=== PATIENT | female | born 1970 | race Caucasian/White ===

== ENCOUNTER 2016-11-19 20:18 | Observation (INO) | payer BC, OTHER ==
[2016-11-19] MEDS ORDERED: ASPIRIN 81 MG TAB.CHEW PO ONE (20:35)
--- NOTE | 2016-11-19 20:41 | ERNOTE ---
<Shantelle Wright - Last Filed: 11/19/16 21:31> Chest Pain/Cardiac HPI Chief Complaint: Chest Pain Time Seen by Provider: 11/19/16 20:19 Source: patient Exam Limitations: no limitations Immunizations: IMMUNIZATION HX Immunizations Up to Date Yes History of Influenza Vaccine Yes Hx Pneumococcal Vaccination No Allergies/Adverse Reactions: Allergies spironolactone Allergy (Verified 11/19/16 20:31) tramadol Allergy (Verified 11/19/16 20:31) Home Medications: HOME MEDICATIONS Metoprolol Succinate [Toprol Xl] 150 mg PO DAILY 02/06/16 [Last Taken 11/19/16] Omeprazole 20 mg PO DAILY 02/06/16 [Last Taken 11/19/16] Furosemide [Lasix] 40 mg PO DAILY PRN 07/03/16 [Last Taken 11/18/16] Aspirin [Aspirin EC] 81 mg PO DAILY 11/19/16 [Last Taken 11/19/16] Levothyroxine Sodium [Levo-T] 275 mcg PO DAILY 11/19/16 [Last Taken 11/19/16] Lisinopril [Zestril] 10 mg PO DAILY 11/19/16 [Last Taken 11/19/16] Rosuvastatin Calcium [Crestor] 10 mg PO DAILY 11/19/16 [Last Taken 11/19/16] Multivitamin [Multivitamins] 1 each PO DAILY 11/20/16 [Last Taken 11/19/16] Narrative: Patient started to have right sided chest pain/RUQ pain as well as central chest pain about 30 minutes after eating wings. She has been nauseated and gagging but no vomiting. In July she was told that she has had an NM within the last year. She saw Dr Cochran in [facility] for shortness of breath and angiogram confirmed a blockage ( but no confirmed NM at the time of angiogram) Date (Duration): 11/19/16 Time (Timing): 16:30 Timing: constant Severity/Quality: moderate Location: central Chest Pain Radiation: no radiation Activities at Onset: none Aspirin Treatment Today: 81 mg x 3 Prior Chest Pain/Cardiac Workup: Reports: cardiac cath, echocardiogram Prior Treatment: Denies: recently seen Review of Systems - Review of Systems Constitutional: Absent: recent illness, fever ENT: Absent: sore throat Respiratory: Absent: shortness of breath Cardiology: Present: chest pain Gastrointestinal/Abdominal: Present: See HPI, nausea, vomiting. Absent: diarrhea Genitourinary: Present: no symptoms reported Neurological: Absent: headache - Patient's Past Medical History Patient History - Medical: Anxiety, GERD, Hypothyroidism, Obesity, Other Patient History - Cardiac/Respiratory: Hypertension, Hyperlipidemia, Myocardial Infarction Patient History - Cancer: Thyroid Patient History - Surgical Procedures: , Gastric Bypass, Other Patient History - Other: None LMP (females 10-50): last week LMP (Calendar): 01/03/16 - Family History Father Family History - Cardiac/Respiratory: No pertinent hx Mother Family History - Medical: Family History - Cardiac/Respiratory: No pertinent hx - Social History Living Situations: home Abuse History: No History of abuse Psych History: Hx of Anxiety Smoking Status: Current every day smoker Alcohol Use: heavy - three beer every day (two today) Drug Use: none - Immunizations Immunizations Up to Date: Yes Hx Pneumococcal Vaccination: No History of Influenza Vaccine: Yes Physical Exam - Physical Exam General Appearance: Present: wd/wn, alert, no apparent distress, anxious Ears, Nose, Throat: Present: normal pharynx Respiratory: Present: no respiratory distress, normal breath sounds, no accessory muscle use, chest nontender, lungs clear Cardiovascular/Chest: Present: regular rate, rhythm, no murmur Gastrointestinal/Abdominal: Present: normal bowel sounds, nondistended, soft, tenderness - RUQ and epigastric Extremity Exam: Present: no edema Neurological Exam: Present: alert, oriented, normal mood/affect Skin Exam: Present: normal color, warm/dry ED Progress - Results and Orders Patient's Lab Results:: I have reviewed the patient's lab results. - Vital Signs Patient's Vital Signs:: I have reviewed the patient's vital signs. Vital Signs: Vital Signs 11/19/16 20:23 Temperature 37.0 C Pulse Rate 83 Respiratory 18 Rate Blood Pressure 160/92 O2 Sat by Pulse 92 Oximetry - EKG EKG: NSR, unchanged from 06/2016, other - poor R progression anterior leads EKG read: Interp. by me - Progress/Reassessment Chief Complaint: Chest Pain - Transfer of Care Physician Sign Out: Shantelle Wright Receiving Physician: Topher Duran Pending Results: X-ray results Expected Disposition: Admit Departure - Departure Clinical Impression: Abdominal pain, acute, right upper quadrant Chest pain Qualifiers: Chest pain type: unspecified Qualified Code(s): R07.9 - Chest pain, unspecified Disposition: [facility] Condition: Fair <RogerTopher - Last Filed: 11/20/16 01:43> Chest Pain/Cardiac HPI Immunizations: IMMUNIZATION HX Immunizations Up to Date Yes History of Influenza Vaccine Yes Hx Pneumococcal Vaccination No ED Progress - Results and Orders Patient's Lab Results:: I have reviewed the patient's lab results. Results and Orders: Laboratory Tests 11/19/16 11/19/16 11/19/16 20:45 20:45 20:45 WBC 10.2 Hgb 11.2 L Hct 32.2 L Plt Count 332 PT 10.0 INR (Anticoag Therapy) 0.96 PTT (Bryan) 28.9 Sodium 132 Potassium 4.1 Chloride 95 L Carbon Dioxide 21.7 L Anion Gap 19.4 H BUN 20 Creatinine 1.41 H Est GFR (Non-Af Amer) 42 L BUN/Creatinine Ratio 14.2 Random Glucose 118 H Calcium 8.9 Total Bilirubin 0.2 AST 17 ALT 18 L Alkaline Phosphatase 97 Troponin I Less than 0.017 Total Protein 7.6 Albumin 3.4 Amylase 38 Lipase 151 - Vital Signs Patient's Vital Signs:: I have reviewed the patient's vital signs. Vital Signs: Vital Signs 11/19/16 11/19/16 20:23 20:56 Temperature 37.0 C Pulse Rate 83 84 Respiratory 18 18 Rate Blood Pressure 160/92 148/99 O2 Sat by Pulse 92 99 Oximetry - X-Ray X-Ray #1 X-Ray: abdomen Interpretation: Interp. by me X-ray Comments: non specific bowel gas pattern - Progress/Reassessment Progress:: Improved Progress Note-Subjective: Assumed care from Dr. Wright at 22:00. Pt had chest and abdominal pain on presentation. Continues to have nausea, given additional zofran. 11/20/16 00:33 Spoke with Estella DE JESUS hospitalist, she agrees to admit pt obs 11/20/16 01:36
--- OUTSIDE RECORDS SUMMARY | 2016-11-19 20:41 | XMS REPORT | Continuity of Care Document ---
:1970 Author Organization [facility] ([facility]) Address [address] [place] [address] Phone [phone] Care Team Providers Name Role Phone Min Evans Primary Care Provider [phone] Source Comments This disclosure is being made pursuant to the Care Everywhere program, applicable federal and state laws, and may not contain all informaitonavailable regarding this patient.[facility] ([facility]) Active Allergies and Adverse Reactions No Known Allergies Current Medications Prescription Sig. Disp. Refills Start Date End Date Status metoPROLol succinate PO Take 1 Tab by Active mouth daily. hydrochlorothiazide 12.5 mg Take 12.5 mg by Active tablet mouth daily. levothyroxine 200 mcg tablet Take 275 mcg by Active mouth daily. Taking 275 mcg daily. 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 Minimal capsular invasion was noted but with no lympho -vascular invasion. 07/29 lymph nodes were positive for metastatic papillary carcinoma in the central neck. [id number]. 150.2 mCi I-131 in January 2012. Posttherapy scan revealed uptake only in the thyroid bed with no evidence of distant metastasis. Hypothyroidism, postsurgical 09/03/2013 Other specified pre-operative examination 12/26/2006 Intestinal bypass or anastomosis status 12/17/2006 Special screening for osteoporosis 12/17/2006 Heartburn 12/17/2006 Immunizations Name Dates Previously Given Next Due Influenza, unspecified 04/20/2013 Social History Tobacco Use Types Packs/Day Years Used Date Current Every Day Smoker Last Filed Vital Signs Vital Sign Reading Time Taken Blood Pressure 141/92 08/31/2013 2:12 PM [employer] Pulse 85 08/31/2013 2:12 PM [employer] Temperature 36.2 C (97.2 F) 08/31/2013 2:12 PM [employer] Respiratory Rate 18 01/08/2007 12:00 PM CDT Height 1.64 m (5' 4.57") 08/31/2013 2:12 PM [employer] Weight 112.9 kg (248 lb 14.4 oz) 08/31/2013 2:12 PM [employer] Body Mass Index 41.98 08/31/2013 2:12 PM [employer] Oxygen Saturation - - Plan of Care Health Maintenance Due Date Last Done Comments Hepatitis B Vaccine (1 of 3 1968 - Primary Series) Tdap Vaccine 1979 MMR Vaccine 1986 Td Vaccine 1986 Pneumococcal Vaccine (1 of 1 1987 - PPSV23) Cervical Cancer Screening 1998 Mammogram 2008 Lipid Disorder Screening 02/17/2014 02/17/2009, Additional history exists 01/15/2008, 07/10/2007 Influenza Vaccine: Seasonal 02/19/2016 04/20/2013 (#1) Results from Last 3 Months Not on file
[2016-11-19] MEDS: NITROGLYCERIN 0.4 MG/TAB BTL SL PRN ×3 (20:46→21:05)
[2016-11-19] MEDS ORDERED: ASPIRIN 81 MG TAB.CHEW ONE (20:47)
[2016-11-19 20:53] LABS: Hematocrit 32.2 % (37.0-47.0); Hemoglobin 11.2 gm/dL (12.5-16.0); Mean Cell Volume 88.2 fl (78-100); Mean Corpuscular Hemoglobin 30.7 pg (27-31); Mean Corpuscular Hgb Conc 34.8 g/dl (32-36); Mean Platelet Volume 8.6 fl (6.0-9.5); Neutrophil # 6.8 K/mm3 (1.3-6.0); Neutrophil % 67.1 % (42-75.0); Platelet Count 332 K/mm3 (150-450); Red Blood Count 3.65 M/mm3 (4.2-5.4); Red Cell Distribution Width 12.9 % (11.5-14.0); White Blood Count 10.2 K/mm3 (4.0-10.5)
[2016-11-19] MEDS ORDERED: ONDANSETRON HCL/PF 2 MG/ML VIAL IV ONE ×2 (20:53→21:52)
[2016-11-19] MEDS ORDERED: ONDANSETRON HCL/PF 2 MG/ML VIAL ONE ×3 (20:54→22:19)
[2016-11-19 21:12] LABS: ALT 18 U/L (19-67); AST 17 U/L (0-48); Albumin * 3.4 gm/dl (3.4-5.0); Alkaline Phosphatase * 97 U/L (50-170); Amylase * 38 U/L (25-115); Anion Gap 19.4 mmol/L (6.8-13.8); BUN/Creatinine Ratio 14.2 (9.0-21.6); Bilirubin, Total 0.2 mg/dL (0.0-1.1); Blood Urea Nitrogen 20 mg/dL (3-23); Ca. Corrected For Albumin 9.1 mg/dL (8.4-10.2); Calcium * 8.9 mg/dL (7.9-10.9); Carbon Dioxide 21.7 mmol/L (24-32.6); Chloride 95 mmol/L (97-106); Glucose * 118 mg/dL (70-110); Lipase 151 U/L (73-393); Potassium 4.1 mmol/L (3.4-4.6); Sodium 132 mmol/L (132-142); Total Protein 7.6 gm/dL (6.2-8.2); Troponin I Less than 0.017 ng/ml (0.00-0.10)
[2016-11-19 21:30] LABS: INR 0.96 INR (0.90-1.10); Partial Thrombolplastin Time 28.9 Seconds (24-32)
[2016-11-19] MEDS ORDERED: NORMAL SALINE 1,000 ML IV ONE (21:55)
[2016-11-19] MEDS ORDERED: NALBUPHINE HCL 20 MG/ML AMPUL IV ONE (22:20)
[2016-11-19] MEDS ORDERED: NALBUPHINE HCL 20 MG/ML AMPUL ONE (22:20)
[2016-11-20] MEDS ORDERED: MORPHINE SULFATE 2 MG/ML DISP.SYRIN IV ONE (00:23)
[2016-11-20] MEDS ORDERED: MORPHINE SULFATE 2 MG/ML DISP.SYRIN ONE (00:35)
--- OUTSIDE RECORDS SUMMARY | 2016-11-20 00:39 | XMS REPORT | Continuity of Care Document ---
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 [id number]. 150.2 mCi I-131 in January 2012. Posttherapy [...] Taken Blood Pressure 141/92 08/31/2013 2:12 PM PL[employer] Pulse 85 08/31/2013 2:12 PM PL[employer] Temperature 36.2 C (97.2 F) 08/31/2013 2:12 PM PLUG W[employer] Respiratory Rate 18 01/08/2007 12:00 PM CDT Height 1.64 m (5' 4.57") 08/31/2013 2:12 PM PL[employer] Weight 112.9 kg (248 lb 14.4 oz) 08/31/2013 2:12 PM [employer] Body Mass Index 41.98 08/31/2013 2:12 PM [employer] Oxygen Saturation - - Plan of Care [...]
[2016-11-20] MEDS ORDERED: NORMAL SALINE 1,000 ML IV PRN (00:57)
--- NOTE | 2016-11-20 01:16 | HP ---
Chief Complaint - Chief Complaint Date of Service: 11/20/16 Time of Service: 01:08 Chief Complaint: " Right Rib Cage Pain, Chest Pressure, Nausea". Source of HPI- Pt; reliable, ER provider report. History of Present Illness: Ms. Rudolph is a 46-yr-old [place] pt of Dr. Min Evans with a PMH of: CAD, CHF , DVT, HLD, HTN, Hypothyroidism & Sleep Apnea. Pt states that at about 4.pm, she had bufallo chicken wings for dinner and 30 minutes later, she developed chest pain on her RT rib cage. She thought it may be related to Acid reflux and therefore put off the symptom. At 7.00 pm, she tried to lie down in bed, but the pain got worse and was accompanied with Nausea, sweating and pain radiation to the back. She denies SOB with this episode. She was afraid that her heart may be involved and therefore chose to come to the [facility] ER. Cardiac risk factors involves cardiomyopathy in June 2016 which led to Cardiac Catheterization in July 2016; which showed Chronically Occluded mid LAD and is managed with Aspirin, beta simona, nancy inhibitor & Statin. Family history is significant for her mother who from an PA at age 36. At the ED tonight, the CXR and Abdominal X-ray did not have any acute findings. The initial EKG and troponin did not have any findings suggestive of ACS/PA. At the time of Physical exam, pt is in no distress, but reports that she still has persistent RT rib cage pain. She will be admitted under observation status for remote telemetry monitoring. - Patient's Past Medical History Patient History - Medical: Anxiety, GERD, Hypothyroidism, Obesity, Other Patient History - Cardiac/Respiratory: Coronary Heart Disease, CHF, Deep Vein Thrombosis, Hypertension, Hyperlipidemia, Myocardial Infarction Patient History - Cancer: Thyroid Patient History - Surgical Procedures: , Gastric Bypass, Other Patient History - Other: None LMP (females 10-50): last week LMP (Calendar): 01/03/16 - Family History Father Family History - Cardiac/Respiratory: No pertinent hx Mother Family History - Medical: Family History - Cardiac/Respiratory: No pertinent hx - Social History Living Situations: home Abuse History: No History of abuse Psych History: Hx of Anxiety Smoking Status: Current every day smoker Alcohol Use: heavy - three beer every day (two today) Drug Use: none - Immunizations Immunizations Up to Date: Yes Hx Pneumococcal Vaccination: No History of Influenza Vaccine: Yes Review Of Systems (GEN) - Review of Systems Generalized/Overall Review: Present: Diaphoresis. Absent: Weakness, Fever, Malaise, Fatigue, Weight loss, Weight gain EENTM: Absent: Eye Pain, Blurred Vision, Double Vision Respiratory: Absent: Cough, Shortness of Breath, Orthopnea Cardiac: Present: Chest Pain. Absent: Palpitations, Syncope Abdominal: Present: Nausea. Absent: Vomiting, Hematemesis, Abdominal Pain Genitourinary: Absent: Burning, Itching, Urgency, Frequency, Hesitancy Musculoskeletal: Absent: Joint Pain, Back Pain, Joint Swelling Neurological: Absent: Headache, Anxiety, Depressed, Emotional Problems Skin: Absent: Dryness, Lesions, Lumps, Rash Endocrine: Present: Intolerance to Heat. Absent: Increased Hunger, Flushing, Increased Thirst Misc: All systems neg except as marked Allergies/Adverse Reactions: Allergies Allergy/AdvReac Type Severity Reaction Status Date / Time spironolactone Allergy Verified 11/19/16 20:31 tramadol Allergy Verified 11/19/16 20:31 Home Medications: HOME MEDICATIONS Metoprolol Succinate [Toprol Xl] 150 mg PO DAILY 02/06/16 [Last Taken 11/19/16] Omeprazole 20 mg PO DAILY 02/06/16 [Last Taken 11/19/16] Furosemide [Lasix] 40 mg PO DAILY PRN 07/03/16 [Last Taken 11/18/16] Aspirin [Aspirin EC] 81 mg PO DAILY 11/19/16 [Last Taken 11/19/16] Levothyroxine Sodium [Levo-T] 275 mcg PO DAILY 11/19/16 [Last Taken 11/19/16] Lisinopril [Zestril] 10 mg PO DAILY 11/19/16 [Last Taken 11/19/16] Rosuvastatin Calcium [Crestor] 10 mg PO DAILY 11/19/16 [Last Taken 11/19/16] Multivitamin [Multivitamins] 1 each PO DAILY 11/20/16 [Last Taken 11/19/16] Exam - Exam Vital Signs: Vital Signs - Last Taken Temp 37.0 C 11/19/16 20:23 Pulse 79 11/20/16 00:39 Resp 18 11/20/16 00:39 BP 155/92 11/20/16 00:39 Pulse Ox 100 11/20/16 00:39 Constitutional: Present: Alert, Oriented x3, No distress ENT Exam: Present: normal ENT inspection, hearing grossly normal, moist mucous membranes Eye Exam: bilateral eye: normal inspection, PERRL Neck: Present: full range of motion, supple, normal inspection Back Exam: Present: no CVA tenderness Respiratory: Present: lungs clear, No wheezing Cardiovascular/Chest: Present: normal peripheral pulses, regular rate, rhythm, no chest tenderness, no edema, no murmur Abdomen: Present: Normal bowel sounds, soft, nontender /Rectal: Present: Exam deferred Extremity: Present: non-tender, normal inspection, no pedal edema, no calf tenderness Skin Exam: Present: warm/dry, no cyanosis Lymphatic: Present: no adenopathy Neurologic: Present: no motor/sensory deficits, alert, normal mood/affect, oriented x 3 Appearance: Present: appropriate appearance, appropriate insight Eye contact: Present: cooperative, good eye contact, normal speech Thoughts: Present: normal thought pattern, no apparent hallucination Diagnostic Studies: Laboratory Results WBC 10.2 K/mm3 (4.0-10.5) 11/19/16 20:45 RBC 3.65 M/mm3 (4.2-5.4) L 11/19/16 20:45 Hgb 11.2 gm/dL (12.5-16.0) L 11/19/16 20:45 Hct 32.2 % (37.0-47.0) L 11/19/16 20:45 MCV 88.2 fl (78-100) 11/19/16 20:45 MCH 30.7 pg (27-31) 11/19/16 20:45 MCHC 34.8 g/dl (32-36) 11/19/16 20:45 RDW 12.9 % (11.5-14.0) 11/19/16 20:45 Plt Count 332 K/mm3 (150-450) 11/19/16 20:45 MPV 8.6 fl (6.0-9.5) 11/19/16 20:45 Immature Gran % (Auto) 0.70 % (0.001-0.429) H 11/19/16 20:45 Immature Gran # (Auto) 0.07 K/mm3 (0.000-0.0310) H 11/19/16 20:45 Neutrophils % 67.1 % (42-75.0) 11/19/16 20:45 Lymphocytes % 20.8 % (20-51) 11/19/16 20:45 Monocytes % 8.8 % (0.0-9) 11/19/16 20:45 Eosinophils % 2.0 % (0.0-3.0) 11/19/16 20:45 Basophils % 0.6 % (0.0-1.0) 11/19/16 20:45 Nucleated RBC % 0.0 k/mm3 (0-1) 11/19/16 20:45 Neutrophils # 6.8 K/mm3 (1.3-6.0) H 11/19/16 20:45 Lymphocytes # 2.1 k/mm3 (1.5-3.5) 11/19/16 20:45 Monocytes # 0.9 k/mm3 (0.0-1.0) 11/19/16 20:45 Eosinophils # 0.2 k/mm3 (0.0-0.7) 11/19/16 20:45 Absolute Basophils 0.1 k/mm3 (0.0-0.1) 11/19/16 20:45 PT 10.0 Seconds (9.4-11.4) 11/19/16 20:45 INR (Anticoag Therapy) 0.96 INR (0.90-1.10) 11/19/16 20:45 PTT (Vamsi) 28.9 Seconds (24-32) 11/19/16 20:45 Sodium 132 mmol/L (132-142) 11/19/16 20:45 Plasma Sodium 132 mmol/L (130-142) 11/19/16 20:45 Potassium 4.1 mmol/L (3.4-4.6) 11/19/16 20:45 Chloride 95 mmol/L (97-106) L 11/19/16 20:45 Carbon Dioxide 21.7 mmol/L (24-32.6) L 11/19/16 20:45 Anion Gap 19.4 mmol/L (6.8-13.8) H 11/19/16 20:45 BUN 20 mg/dL (3-23) 11/19/16 20:45 Creatinine 1.41 mg/dL (0.4-1.4) H 11/19/16 20:45 Est GFR (Non-Af Amer) 42 mL/min (60-130) L 11/19/16 20:45 BUN/Creatinine Ratio 14.2 (9.0-21.6) 11/19/16 20:45 Random Glucose 118 mg/dL (70-110) H 11/19/16 20:45 Calcium 8.9 mg/dL (7.9-10.9) 11/19/16 20:45 Calcium Adj for Albumin 9.1 mg/dL (8.4-10.2) 11/19/16 20:45 Total Bilirubin 0.2 mg/dL (0.0-1.1) 11/19/16 20:45 AST 17 U/L (0-48) 11/19/16 20:45 ALT 18 U/L (19-67) L 11/19/16 20:45 Alkaline Phosphatase 97 U/L (50-170) 11/19/16 20:45 Troponin I Less than 0.017 ng/ml (0.00-0.10) 11/19/16 20:45 Total Protein 7.6 gm/dL (6.2-8.2) 11/19/16 20:45 Albumin 3.4 gm/dl (3.4-5.0) 11/19/16 20:45 Amylase 38 U/L (25-115) 11/19/16 20:45 Lipase 151 U/L (73-393) 11/19/16 20:45 Assessment/Plan - Assessment/Plan (1) Chest pain, rule out acute myocardial infarction Assessment: The first Troponin and EKG was negative for ACS/PA. Will repeat EKG &obtain serial Troponins. Should they all come back negative, will attribute the Episode to be GI related. Will adjust omeprazole dose and encourage diet lifestyle modifications. Will administer GI cocktail to see if it will aid in providing relief. Problem: Acute (2) GERD (gastroesophageal reflux disease) Problem: Chronic (3) HTN (hypertension) Problem: Chronic Qualifiers: Hypertension type: essential hypertension Qualified Code(s): I10 - Essential (primary) hypertension (4) HLD (hyperlipidemia) Problem: Chronic
[2016-11-20] MEDS ORDERED: SUCRALFATE 1 G/10 ML UDC PO ONE (01:30)
[2016-11-20] MEDS ORDERED: MAG HYDROX/ALUMINUM HYD/SIMETH 30 ML UDC PO ONE (01:30)
[2016-11-20] MEDS ORDERED: BELLADONNA ALKALOIDS/PHENOBARB 60 ML BTL PO ONE (01:30)
[2016-11-20] MEDS ORDERED: LIDOCAINE HCL 20 ML UDC PO ONE (01:30)
[2016-11-20] MEDS ORDERED: KETOROLAC TROMETHAMINE 15 MG/ML VIAL IV PRN (03:22)
[2016-11-20] MEDS ORDERED: FUROSEMIDE 80 MG TABLET PO PRN (06:18)
[2016-11-20] MEDS ORDERED: NITROGLYCERIN 0.4 MG/TAB BTL SL PRN (06:27)
[2016-11-20 06:45] VITALS: BP 146/49
[2016-11-20] MEDS ORDERED: FUROSEMIDE 40 MG TABLET PO PRN (06:48)
[2016-11-20] MEDS ORDERED: LEVOTHYROXINE SODIUM PO SCH ×4 (07:00)
--- NOTE | 2016-11-20 08:11 | DS ---
(1) Gall bladder pain Problem: Acute (2) Chest pain Problem: Acute Qualifiers: Chest pain type: unspecified Qualified Code(s): R07.9 - Chest pain, unspecified (3) GERD (gastroesophageal reflux disease) Problem: Chronic Qualifiers: Esophagitis presence: esophagitis presence not specified Qualified Code(s) : K21.9 - Gastro-esophageal reflux disease without esophagitis (4) HLD (hyperlipidemia) Problem: Chronic Qualifiers: Hyperlipidemia type: unspecified Qualified Code(s): E78.5 - Hyperlipidemia , unspecified (5) HTN (hypertension) Problem: Chronic Qualifiers: Hypertension type: essential hypertension Qualified Code(s): I10 - Essential (primary) hypertension Description of Stay: Kim is a 46 year old female who presented to the ER with c/o chest pain after eating fried chicken wings the afternoon prior. troponin negative x2. ekg showed no acute st-t wave changes. chest pain resolved prior to admission to the unit. pt c/o RUQ abdominal pain but no elevated wbc. amylase/lipase wnl. liver panel wnl. abdominal xray showed no acute changes. patient stayed overnight for observation and was release the next morning with the following follow up: Ultrasound of the RUQ of the abdomen in 1 week with follow up office visit with pcp to follow. Patient was advised to avoid fried fatty foods in the meantime. Procedures Performed: none Results and Findings: Laboratory Tests 11/19/16 11/19/16 11/20/16 20:45 20:45 03:00 WBC 10.2 Hgb 11.2 L Hct 32.2 L Plt Count 332 Sodium 132 Potassium 4.1 Chloride 95 L BUN 20 Creatinine 1.41 H Random Glucose 118 H Total Bilirubin 0.2 AST 17 Alkaline Phosphatase 97 Troponin I Less than 0.017 0.017 Amylase 38 Lipase 151 Discharge Disposition: Home self care Disposition: Home self-care Condition: Undetermined Discharge Activity: Activity as tolerated Discharge Diet: Low fat/chol - no fried fatty foods Referrals: Min Evans MD [Primary Care Provider] - Problem Oriented Discharge Instructions to Patient/Family: Fat and Cholesterol Restricted Diet, Biliary Colic, Gastroesophageal Reflux Disease, Adult, Easy-to- Read Additional Patient Instructions (free text): push fluids such as water. avoid fried fatty foods. Schedule outpatient Ultrasound of the Liver/Gall Bladder, indication: RUQ pain. Follow up with dr. Evans after Ultrasound Medication changes: omeprazole 20 mg - 2 times a day. Prescriptions (Any new or edited meds): Omeprazole 20 mg PO BID #60 tablet. Complete Home Medications List: Complete Home Medication List: Metoprolol Succinate [Toprol Xl] 150 mg PO DAILY 02/06/16 Furosemide [Lasix] 40 mg PO DAILY PRN 07/03/16 Aspirin [Aspirin EC] 81 mg PO DAILY 11/19/16 Levothyroxine Sodium [Levo-T] 275 mcg PO DAILY 11/19/16 Lisinopril [Zestril] 10 mg PO DAILY 11/19/16 Rosuvastatin Calcium [Crestor] 10 mg PO DAILY 11/19/16 Multivitamin [Multivitamins] 1 each PO DAILY 11/20/16 Omeprazole 20 mg PO BID #60 tablet. 11/20/16 Amb Orders for Discharge: US Abd Single Organ (Limited) Time Frame: 1 Week, Location: Determined By Patient
[2016-11-20] MEDS ORDERED: PANTOPRAZOLE SODIUM 20 MG TABLET.DR PO SCH (09:00)
[2016-11-20] MEDS ORDERED: MULTIVITAMINS 1 CAP CAPSULE PO SCH (09:00)
[2016-11-20] MEDS ORDERED: LISINOPRIL 10 MG TABLET PO SCH (09:00)
[2016-11-20] MEDS ORDERED: ASPIRIN 81 MG TABLET.DR PO SCH (09:00)
[2016-11-20] MEDS ORDERED: METOPROLOL SUCCINATE 100 MG, METOPROLOL SUCCINATE 50 MG PO SCH ×2 (09:00)
[2016-11-20] MEDS ORDERED: METOPROLOL SUCCINATE 100 MG TABLET.SA PO SCH (09:00)
[2016-11-20] MEDS ORDERED: LEVOTHYROXINE SODIUM 275 MCG PO SCH (09:00)
[2016-11-20] MEDS ORDERED: ROSUVASTATIN CALCIUM 10 MG TABLET PO SCH (21:00)
== END 2016-11-20 09:35 | disposition home or self-care (01) ==
LOC: ER 20:18 → MS 11-20 00:35
PROVIDERS: ADMIT Nurse Practitioner; ATTEND Internal Medicine
DX: K82.9 Disease of gallbladder, unspecified (principal); R07.9 Chest pain, unspecified; K21.9 Gastro-esophageal reflux disease without esophagitis; E78.5 Hyperlipidemia, unspecified; I10 Essential (primary) hypertension
CPT/HCPCS: 36415; 71020; 74020; 80053; 82150; 83690; 84484; 85025; 85610; 85730; 93005; 96374; 96375; 99284; G0378

== ENCOUNTER 2016-11-22 09:31 | Emergency (ER) | payer BC ==
--- OUTSIDE RECORDS SUMMARY | 2016-11-22 09:52 | XMS REPORT | Continuity of Care Document ---
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 [id number]. 150.2 mCi I-131 in January 2012. Posttherapy [...] Taken Blood Pressure 141/92 08/31/2013 2:12 PM [employer] Pulse 85 08/31/2013 2:12 PM [employer] Temperature 36.2 C (97.2 F) 08/31/2013 2:12 PM [employer] Respiratory Rate 18 01/08/2007 12:00 PM CDT Height 1.64 m (5' 4.57") 08/31/2013 2:12 PM [employer] Weight 112.9 kg (248 lb 14.4 oz) 08/31/2013 2:12 PM [employer] Body Mass Index 41.98 08/31/2013 2:12 PM [employer] Oxygen Saturation - - Plan of Care [...]
[2016-11-22] MEDS ORDERED: PIPERACILLIN SODIUM/TAZOBACTAM 3.375 GM in DEXTROSE 5 % IN WATER 100 ML IV ONE ×2 (10:17)
[2016-11-22 10:26] LABS: Hematocrit 31.1 % (37.0-47.0); Hemoglobin 10.9 gm/dL (12.5-16.0); Mean Cell Volume 88.4 fl (78-100); Mean Platelet Volume 8.4 fl (6.0-9.5); Neutrophil # 8.4 K/mm3 (1.3-6.0); Neutrophil % 80.5 % (42-75.0); Platelet Count 286 K/mm3 (150-450); Red Blood Count 3.52 M/mm3 (4.2-5.4); Red Cell Distribution Width 12.9 % (11.5-14.0); White Blood Count 10.4 K/mm3 (4.0-10.5)
[2016-11-22] MEDS ORDERED: NORMAL SALINE 1,000 ML IV PRN (10:28)
[2016-11-22 10:39] LABS: Albumin * 2.6 gm/dl (3.4-5.0); Anion Gap 16.2 mmol/L (6.8-13.8); BUN/Creatinine Ratio 9.7 (9.0-21.6); Bilirubin, Total 0.9 mg/dL (0.0-1.1); Ca. Corrected For Albumin 9.6 mg/dL (8.4-10.2); Calcium * 8.8 mg/dL (7.9-10.9); Carbon Dioxide 21.4 mmol/L (24-32.6); Potassium 3.6 mmol/L (3.4-4.6); Total Protein 6.8 gm/dL (6.2-8.2)
--- NOTE | 2016-11-22 10:44 | ERNOTE ---
Abdominal HPI - Narrative Date of Service: 11/22/16 - General Chief Complaint: Abdominal Pain Time Seen by Provider: 11/22/16 09:38 Source: patient Exam Limitations: no limitations - Immun/Allergies/Home Medications Immunizatons: IMMUNIZATION HX Immunizations Up to Date Yes History of Influenza Vaccine Yes Hx Pneumococcal Vaccination No Allergies/Adverse Reactions: Allergies spironolactone Allergy (Verified 11/22/16 09:46) tramadol Allergy (Verified 11/22/16 09:46) Home Medications: HOME MEDICATIONS Metoprolol Succinate [Toprol Xl] 150 mg PO DAILY 02/06/16 [Last Taken 11/19/16] Furosemide [Lasix] 40 mg PO DAILY PRN 07/03/16 [Last Taken 11/18/16] Aspirin [Aspirin EC] 81 mg PO DAILY 11/19/16 [Last Taken 11/19/16] Levothyroxine Sodium [Levo-T] 275 mcg PO DAILY 11/19/16 [Last Taken 11/19/16] Lisinopril [Zestril] 10 mg PO DAILY 11/19/16 [Last Taken 11/19/16] Rosuvastatin Calcium [Crestor] 10 mg PO DAILY 11/19/16 [Last Taken 11/19/16] Multivitamin [Multivitamins] 1 each PO DAILY 11/20/16 [Last Taken 11/19/16] Omeprazole 20 mg PO BID #60 tablet. 11/20/16 [Last Taken Unknown] Cholecalciferol [Vitamin D] 1,000 unit PO DAILY 11/22/16 [Last Taken Unknown] Co Q-10 11/22/16 [Last Taken Unknown] Ferrous Sulfate [Iron] 325 mg PO HS 11/22/16 [Last Taken Unknown] - History of Present Illness Narrative: Patient presents to the ED for an abnormal ultrasound. She has been in the hospital for chest pains. An outpatient GB US was done this am and her provider was contacted. Her provider spoke with Dr Barnes and the patient was sent to the ED. She denies fever. RUQ pain. No active vomiting. She relates no further chest pain. Denies new leg swelling. Pain waxes and wanes, nothing makes it better or worse. Timing: other - fluctuating intensity Quality: mild Activities at Onset: none Modifying Factors - (Improves): Present: other - nothing Modifying Factors - (Worsens): Present: other - palpation Associated Symptoms: Absent: chest pain, vomiting, shortness of breath Prior Treatment: Present: recently seen, treated by physician Review of Systems - Review of Systems Constitutional: Absent: fever Respiratory: Absent: shortness of breath Cardiology: Present: See HPI Gastrointestinal/Abdominal: Present: See HPI Genitourinary: Absent: dysuria All Other Systems: All systems neg except as marked - Patient's Past Medical History Patient History - Medical: Anxiety, GERD, Hypothyroidism, Obesity, Other Patient History - Cardiac/Respiratory: Coronary Heart Disease, CHF, Deep Vein Thrombosis, Hypertension, Hyperlipidemia, Myocardial Infarction Patient History - Cancer: Thyroid Patient History - Surgical Procedures: , Gastric Bypass, Other Patient History - Other: None LMP (Calendar): 01/03/16 - Family History Father Family History - Cardiac/Respiratory: No pertinent hx Mother Family History - Medical: Family History - Cardiac/Respiratory: No pertinent hx - Social History Living Situations: home Abuse History: No History of abuse Psych History: Hx of Anxiety Smoking Status: Current every day smoker Have you smoked in the past 12 months: Yes Do you dip or chew tobacco: No Alcohol Use: heavy Drug Use: none - Immunizations Immunizations Up to Date: Yes Hx Pneumococcal Vaccination: No History of Influenza Vaccine: Yes Physical Exam - Physical Exam General Appearance: Present: alert, no apparent distress Eye Exam: Normal inspection: bilateral, PERRL: bilateral Ears, Nose, Throat: Present: normal ENT inspection Neck: Present: normal inspection Respiratory: Present: no respiratory distress, normal breath sounds, no accessory muscle use, lungs clear Cardiovascular/Chest: Present: regular rate, rhythm Gastrointestinal/Abdominal: Present: normal bowel sounds, soft, tenderness, other - RUQ tenderness. No guarding or rebound. No peritoneal signs Back Exam: Absent: CVA tenderness (R), CVA tenderness (L) Extremity Exam: Present: normal range of motion Neurological Exam: Present: alert, normal mood/affect, no motor/sensory deficits Skin Exam: Present: normal color, warm/dry ED Progress - Results and Orders Patient's Lab Results:: I have reviewed the patient's lab results. - Vital Signs Patient's Vital Signs:: I have reviewed the patient's vital signs. Vital Signs: Vital Signs 11/22/16 11/22/16 09:49 10:24 Temperature 36.9 C Pulse Rate 93 82 Respiratory 16 16 Rate Blood Pressure 143/84 108/62 O2 Sat by Pulse 100 97 Oximetry - CT/Ultrasound CT/Ultrasound Narrative: I reviwed US from earlier - Progress/Reassessment Chief Complaint: Abdominal Pain Progress Note-Subjective: 11/22/16 10:42 D/W Dr Barnes and patient. Patient agreeable to go to [facility] as Dr Barnes feels additional services may be needed. IV ABx given. Transfer arranged to [facility]. Departure - Departure Clinical Impression: Cholecystitis Disposition: [facility] Condition: Stable Referrals: Min Evans MD [Primary Care Provider] -
[2016-11-22 10:57] VITALS: BP 116/74
== END 2016-11-22 11:15 | disposition short-term general hospital (02) ==
LOC: ER 09:31
DX: K81.9 Cholecystitis, unspecified (principal); Z85.850 Personal history of malignant neoplasm of thyroid; Z72.0 Tobacco use; I25.2 Old myocardial infarction; K21.9 Gastro-esophageal reflux disease without esophagitis; I10 Essential (primary) hypertension

== ENCOUNTER 2018-05-29 08:12 | Inpatient (IN) ==
[2018-05-29 08:51] LABS: Hematocrit 38.3 % (37.0-47.0); Hemoglobin 13.6 gm/dL (12.5-16.0); Mean Cell Volume 86.8 fl (78-100); Mean Corpuscular Hemoglobin 30.8 pg (27-31); Mean Corpuscular Hgb Conc 35.5 g/dl (32-36); Neutrophil # 8.6 K/mm3 (1.3-6.0); Neutrophil % 76.3 % (42-75.0); Platelet Count 250 K/mm3 (150-450); Red Blood Count 4.41 M/mm3 (4.2-5.4); Red Cell Distribution Width 15.3 % (11.5-14.0); White Blood Count 11.2 K/mm3 (4.0-10.5)
[2018-05-29 09:11] LABS: Albumin * 3.4 gm/dl (3.4-5.0); Anion Gap 21.8 mmol/L (6.8-13.8); BUN/Creatinine Ratio 21.1 (9.0-21.6); Bilirubin, Total 1.3 mg/dL (0.0-1.1); Ca. Corrected For Albumin 8.6 mg/dL (8.4-10.2); Calcium * 8.4 mg/dL (7.9-10.9); Carbon Dioxide 16.9 mmol/L (24-32.6); Potassium 4.7 mmol/L (3.4-4.6); TSH * 1.667 uIU/mL (0.358-3.74); Total Protein 7.6 gm/dL (6.2-8.2)
[2018-05-29] MEDS ORDERED: NORMAL SALINE 1,000 ML IV ONE ×2 (13:32→15:02)
--- NOTE | 2018-05-29 13:35 | ERNOTE ---
Medical Problem HPI - Narrative Date of Service: 05/29/18 - Patient states that she is very shakey and wants her TSH tested. She also states that her sodium and potassium are frequently "out of whack". She admits to drinking about half a pint of vodka a day and smoking half a pack of cigarettes a day. She takes her thyroid replacement irratically ranging from 50 to 200 mcg a day. She states that she is very anxious. - General Chief Complaint: Nausea/Vomiting Time Seen by Provider: 05/29/18 08:20 Source: patient, family Exam Limitations: intoxication - Immun/Allergies/Home Medications Immunizations: IMMUNIZATION HX Immunizations Up to Date Yes History of Influenza Vaccine Yes Hx Pneumococcal Vaccination No Allergies/Adverse Reactions: Allergies tramadol Allergy (Intermediate, Verified 05/29/18 17:16) Itching spironolactone Adverse Reaction (Intermediate, Verified 05/29/18 17:16) "Messes with electrolytes and thryoid" Home Medications: HOME MEDICATIONS levothyroxine 50 mcg tablet 50 mcg PO DAILY #30 tab 03/16/18 [Last Taken Unknown] furosemide 20 mg tablet 20 mg PO DAILY PRN 03/19/18 [Last Taken 05/29/18] levothyroxine 200 mcg tablet 200 mcg PO DAILY 03/19/18 [Last Taken 05/29/18] lisinopril 10 mg tablet 20 mg PO BID tab 03/19/18 [Last Taken 05/29/18] metoprolol succinate ER 100 mg tablet,extended release 24 hr 150 mg PO QHS tab 03/19/18 [Last Taken Unknown] omeprazole 40 mg capsule,delayed release 40 mg PO DAILY 03/19/18 [Last Taken Unknown] rosuvastatin 5 mg tablet 5 mg PO DAILY 03/19/18 [Last Taken Unknown] - Pain Score Pain Score #1 Pain Score: 0 - History of Present History Narrative: See above. Date (Duration): 05/29/18 Timing: intermittent Severity: moderate Modifying Factors - (Improves): Present: other - nothing Modifying Factors - (Worsens): Present: other - nothing Review of Systems - Review of Systems Constitutional: Present: no symptoms reported, See HPI EYE: Present: no symptoms reported ENT: Present: no symptoms reported Respiratory: Present: no symptoms reported Cardiology: Present: no symptoms reported Gastrointestinal/Abdominal: Present: nausea, vomiting Genitourinary: Present: no symptoms reported Musculoskeletal: Present: no symptoms reported Skin: Present: no symptoms reported. 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 Ceballos Family History: Family History (Last Reviewed 05/29/18 @ 08:31 by Aimee Betancur RN) Father Aneurysm Heart disease stents Mother , age 36 Cancer colon CA CVA (cerebral vascular accident) Social History: Preferred Language Peruvian Do you have any faith or No cultural preference? Smoking Status Current every day smoker Abuse History No History of abuse Psych History Hx of Anxiety Alcohol Use heavy Drug Use none (Last Updated 03/19/18 @ 14:11 by Maria Eugenia Izaguirre) No Social History Section defined Physical Exam - Physical Exam General Appearance: Present: wd/wn, alert, no apparent distress, anxious Head Exam: Present: normal inspection, no evidence of injury Eye Exam: Normal inspection: bilateral, PERRL: bilateral, EOMI: bilateral Ears, Nose, Throat: Present: normal ENT inspection Neck: Present: normal inspection, nontender Respiratory: Present: no respiratory distress, normal breath sounds, no accessory muscle use, chest nontender, lungs clear Cardiovascular/Chest: Present: regular rate, rhythm, no murmur, normal peripheral pulses Peripheral Pulses: N=norm/S=strong/W=weak/B=bound/A=absent: Carotid (R): Normal, Carotid (L): Normal, Radial (R): Normal Gastrointestinal/Abdominal: Present: normal bowel sounds, nontender, nondistended, soft Back Exam: Present: normal inspection, normal range of motion, no CVA tenderness, no vertebral tenderness Extremity Exam: Present: normal inspection, non-tender, normal range of motion, no edema Neurological Exam: Present: alert, oriented, normal mood/affect, no motor/sensory deficits, cotton ball bagger II-XII nml as tested Skin Exam: Present: normal color, warm/dry Lymphatic Exam: Present: no adenopathy ED Progress - Results and Orders Patient's Lab Results:: I have reviewed the patient's lab results. - Vital Signs Patient's Vital Signs:: I have reviewed the patient's vital signs. Vital Signs: Vital Signs 05/29/18 08:23 05/29/18 12:18 Temperature 35.8 C L Pulse Rate 90 82 Respiratory Rate 16 18 Blood Pressure 115/76 105/84 O2 Sat by Pulse Oximetry 100 100 - Progress/Reassessment Chief Complaint: Nausea/Vomiting Progress:: Re-examined - Patient is no longer intoxicated, but her Na is lower and K higher than previously. (119, Progress Note-Subjective: 05/29/18 15:41 Labs revealled an alcohol level of 33.0. Na was 122 and K 4.7. there was a slight elevation in liver enzymes and BUN. 05/29/18 15:43 TSH was 1.667 (normal) An IV of normal saline was given with a bolus of 1 Liter and than set at 125ml/hr. Repeat of labs will be done at 4 o'clock. Repeat labs showed a slight decrease in Na and slight increase in K. She is no longer intoxicated. She will be admitted for stabilization of electrolytes and precaution for seizures. Discussed with Dr. Morrissey. 05/29/18 19:18 Plan - Plan Plan: Patient was discussed with Dr. Morrissey who will admit her for stabilization of electrolytes and precaution of seizures. Continue NS IV for now. To med-surg. Admission order from ER written. Departure Clinical Impression: Hyponatremia, Hyperkalemia, Alcohol abuse - Departure Disposition: Still a patient Condition: Fair
[2018-05-29 16:16] LABS: ALT 69 U/L (19-67); AST 191 U/L (0-48); Albumin * 3.1 gm/dl (3.4-5.0); Alkaline Phosphatase * 69 U/L (50-170); Anion Gap 16.5 mmol/L (6.8-13.8); BUN/Creatinine Ratio 21.5 (9.0-21.6); Bilirubin, Total 1.2 mg/dL (0.0-1.1); Blood Urea Nitrogen 31 mg/dL (3-23); Ca. Corrected For Albumin 8.3 mg/dL (8.4-10.2); Calcium * 7.9 mg/dL (7.9-10.9); Carbon Dioxide 20.5 mmol/L (24-32.6); Chloride 87 mmol/L (97-106); Glucose * 84 mg/dL (70-110); Total Protein 6.9 gm/dL (6.2-8.2)
[2018-05-29 16:18] LABS: Sodium 119 mmol/L (132-142)
[2018-05-29] MEDS ORDERED: MULTIVIT INFUSN,ADULT 4,VIT K 10 ML, THIAMINE HCL 100 MG in DEXTROSE 5 % IN WATER 1,000 ML IV SCH ×3 (17:45)
--- NOTE | 2018-05-29 18:04 | HP ---
Chief Complaint - Chief Complaint Date of Service: 05/29/18 Time of Service: 17:10 Chief Complaint: Weak, shakey, jittery, History of Present Illness: Kim Perez is a 47-year-old female who presented to ER because of weakness jitteriness and shakiness since this morning. On further questioning she is drinking a half a pint of vodka every day and her lab work shows her sodium 122 and after receiving 2 L of normal saline dropped to 119. Her potassium is preserved at 4.7. She has not had this happen before. Her past medical history is significant for an AMI about 2 years ago which made a full recovery. She was admitted for hyponatremia. Her blood alcohol was 33 on admission. She improved significantly rehydration. She also uses tobacco and is requesting a nicotine patch. 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 Ceballos Family History: Family History (Last Reviewed 05/29/18 @ 08:31 by Aimee Betancur RN) Father Aneurysm Heart disease stents Mother , age 36 Cancer colon CA CVA (cerebral vascular accident) Social History: Patient Lives/Resources With Spouse Utilized Preferred Language Zimbabwean Do you have any pentecostalism or No cultural preference? Smoking Status Current every day smoker Have you smoked in the past 12 Yes months Abuse History No History of abuse Psych History Hx of Anxiety Alcohol Use heavy Drug Use none (Last Updated 03/19/18 @ 14:11 by Maria Eugenia Izaguirre) No Social History Section defined Review Of Systems (GEN) - Review of Systems Generalized/Overall Review: Present: Weakness, Malaise EENTM: Present: No Symptoms Reported Respiratory: Present: No Symptoms Reported Cardiac: Present: No Symptoms Reported Abdominal: Present: No Symptoms Reported Genitourinary: Present: No Symptoms Reported Musculoskeletal: Present: No Symptoms Reported Neurological: Present: No Symptoms Reported, Anxiety, Tingling, Other - And jitteriness since this morning. Skin: Present: No Symptoms Reported Endocrine: Present: No Symptoms Reported Immunizations: IMMUNIZATION HX Immunizations Up to Date Yes History of Influenza Vaccine Yes Hx Pneumococcal Vaccination No Allergies/Adverse Reactions: Allergies Allergy/AdvReac Type Severity Reaction Status Date / Time tramadol Allergy Intermediate Itching Verified 05/29/18 17:16 spironolactone AdvReac Intermediate "Messes Verified 05/29/18 17:16 with electrolytes and thryoid" Home Medications: HOME MEDICATIONS levothyroxine 50 mcg tablet 50 mcg PO DAILY #30 tab 03/16/18 [Last Taken Unknown] furosemide 20 mg tablet 20 mg PO DAILY PRN 03/19/18 [Last Taken 05/29/18] levothyroxine 200 mcg tablet 200 mcg PO DAILY 03/19/18 [Last Taken 05/29/18] lisinopril 10 mg tablet 20 mg PO BID tab 03/19/18 [Last Taken 05/29/18] metoprolol succinate ER 100 mg tablet,extended release 24 hr 150 mg PO QHS tab 03/19/18 [Last Taken Unknown] omeprazole 40 mg capsule,delayed release 40 mg PO DAILY 03/19/18 [Last Taken Unknown] rosuvastatin 5 mg tablet 5 mg PO DAILY 03/19/18 [Last Taken Unknown] Exam - Exam Vital Signs: Vital Signs - Last Taken Temp 36.8 C 05/29/18 17:21 Pulse 88 05/29/18 17:21 Resp 15 05/29/18 17:21 BP 144/86 H 05/29/18 17:21 Pulse Ox 99 05/29/18 17:21 Constitutional: Present: Alert, Oriented x3, Cooperative, Well developed, Well nourished, Mild distress, Middle aged, Overweight ENT Exam: Present: normal ENT inspection, hearing grossly normal, pharynx normal, TMs normal Eye Exam: bilateral eye: normal inspection, PERRL, EOMI Neck: Present: non-tender, full range of motion Back Exam: Present: normal inspection, no CVA tenderness, no vertebral tenderness Breasts: Present: Exam deferred Respiratory: Present: chest non-tender, lungs clear, normal breath sounds, no respiratory distress, no accessory muscle use Cardiovascular/Chest: Present: normal peripheral pulses, regular rate, rhythm, no chest tenderness, no edema, no gallop, no JVD, no murmur, no rub Peripheral Pulses: carotid (R): 2+, carotid (L): 2+, radial (R): 2+, radial (L): 2+ Abdomen: Present: Normal bowel sounds, soft, nontender, nondistended, no rebound tenderness, no hepatospenomegaly, no masses /Rectal: Present: Exam deferred Extremity: Present: normal range of motion, non-tender, normal inspection, no pedal edema, no calf tenderness Skin Exam: Present: normal color, warm/dry, no cyanosis Lymphatic: Present: no adenopathy Neurologic: Present: busboy II-XII nml as tested, alert, normal mood/affect, oriented x 3, other - Anxiety Appearance: Present: appropriate appearance, appropriate insight, neat, no memory impairment, denies illness Eye contact: Present: cooperative, good eye contact, normal speech Thoughts: Present: normal thought pattern, no apparent hallucination Diagnostic Studies: Abnormal Lab Results 05/29/18 05/29/18 05/29/18 Range/Units 08:48 08:48 15:59 WBC 11.2 H (4.0-10.5) K/mm3 RDW 15.3 H (11.5-14.0) % Immature Gran # (Auto) 0.04 H (0.000-0.0310) K/mm3 Neutrophils % 76.3 H (42-75.0) % Lymphocytes % 13.6 L (20-51) % Monocytes % 9.2 H (0.0-9) % Neutrophils # 8.6 H (1.3-6.0) K/mm3 Sodium 122 L 119 L (132-142) mmol/L Plasma Sodium 122 L 119 L* (130-142) mmol/L Potassium 4.7 H 5.0 H (3.4-4.6) mmol/L Chloride 88 L 87 L (97-106) mmol/L Carbon Dioxide 16.9 L 20.5 L (24-32.6) mmol/L Anion Gap 21.8 H 16.5 H (6.8-13.8) mmol/L BUN 38 H D 31 H (3-23) mg/dL Creatinine 1.80 H D 1.44 H (0.4-1.4) mg/dL Est GFR (Non-Af Amer) 32 L D 41 L D (60-130) mL/min Calcium Adj for Albumin 8.3 L (8.4-10.2) mg/dL Total Bilirubin 1.3 H 1.2 H (0.0-1.1) mg/dL AST 199 H 191 H (0-48) U/L ALT 69 H 69 H (19-67) U/L Albumin 3.1 L (3.4-5.0) gm/dl Ethyl Alcohol 33.0 H (0.0-10.0) mg/dL Laboratory Results WBC 11.2 K/mm3 (4.0-10.5) H 05/29/18 08:48 RBC 4.41 M/mm3 (4.2-5.4) 05/29/18 08:48 Hgb 13.6 gm/dL (12.5-16.0) 05/29/18 08:48 Hct 38.3 % (37.0-47.0) 05/29/18 08:48 MCV 86.8 fl (78-100) 05/29/18 08:48 MCH 30.8 pg (27-31) 05/29/18 08:48 MCHC 35.5 g/dl (32-36) 05/29/18 08:48 RDW 15.3 % (11.5-14.0) H 05/29/18 08:48 Plt Count 250 K/mm3 (150-450) 05/29/18 08:48 MPV 9.0 fl (8-12.5) 05/29/18 08:48 Immature Gran % (Auto) 0.40 % (0.001-0.429) 05/29/18 08:48 Immature Gran # (Auto) 0.04 K/mm3 (0.000-0.0310) H 05/29/18 08:48 Neutrophils % 76.3 % (42-75.0) H 05/29/18 08:48 Lymphocytes % 13.6 % (20-51) L 05/29/18 08:48 Monocytes % 9.2 % (0.0-9) H 05/29/18 08:48 Eosinophils % 0.2 % (0.0-3.0) 05/29/18 08:48 Basophils % 0.3 % (0.0-1.0) 05/29/18 08:48 Nucleated RBC % 0.0 k/mm3 (0-1) 05/29/18 08:48 Neutrophils # 8.6 K/mm3 (1.3-6.0) H 05/29/18 08:48 Lymphocytes # 1.53 k/mm3 (1.5-3.5) 05/29/18 08:48 Monocytes # 1.0 k/mm3 (0.0-1.0) 05/29/18 08:48 Eosinophils # 0.0 k/mm3 (0.0-0.7) 05/29/18 08:48 Absolute Basophils 0.0 k/mm3 (0.0-0.1) 05/29/18 08:48 Sodium 119 mmol/L (132-142) L 05/29/18 15:59 Plasma Sodium 119 mmol/L (130-142) L* 05/29/18 15:59 Potassium 5.0 mmol/L (3.4-4.6) H 05/29/18 15:59 Chloride 87 mmol/L (97-106) L 05/29/18 15:59 Carbon Dioxide 20.5 mmol/L (24-32.6) L 05/29/18 15:59 Anion Gap 16.5 mmol/L (6.8-13.8) H 05/29/18 15:59 BUN 31 mg/dL (3-23) H 05/29/18 15:59 Creatinine 1.44 mg/dL (0.4-1.4) H 05/29/18 15:59 Est GFR (Non-Af Amer) 41 mL/min (60-130) L D 05/29/18 15:59 BUN/Creatinine Ratio 21.5 (9.0-21.6) 05/29/18 15:59 Random Glucose 84 mg/dL (70-110) 05/29/18 15:59 Calcium 7.9 mg/dL (7.9-10.9) 05/29/18 15:59 Calcium Adj for Albumin 8.3 mg/dL (8.4-10.2) L 05/29/18 15:59 Total Bilirubin 1.2 mg/dL (0.0-1.1) H 05/29/18 15:59 AST 191 U/L (0-48) H 05/29/18 15:59 ALT 69 U/L (19-67) H 05/29/18 15:59 Alkaline Phosphatase 69 U/L (50-170) 05/29/18 15:59 Total Protein 6.9 gm/dL (6.2-8.2) 05/29/18 15:59 Albumin 3.1 gm/dl (3.4-5.0) L 05/29/18 15:59 TSH 1.667 uIU/mL (0.358-3.74) 05/29/18 08:48 Ethyl Alcohol Less than 3.0 mg/dL (0.0-10.0) 05/29/18 15:59 Assessment/Plan - Narrative Narrative: 1. Continue IV normal saline at 125 mL per hour 2. Give a banana bag this evening 3. Start thiamine 100 mg once daily by mouth 4. Recheck laboratory work in the morning 5. Nicotine patch 6. Cardiac monitoring tonight. Probably discontinue tomorrow. - Assessment/Plan (1) Alcohol abuse Problem: Chronic (2) Hypothyroidism Problem: Chronic Qualifiers: Hypothyroidism type: postoperative Qualified Code(s): E89.0 - Postprocedural hypothyroidism (3) Hyponatremia Problem: Acute (4) At risk for seizures Problem: Acute
[2018-05-29] MEDS: THIAMINE HCL 100 MG TABLET PO SCH (19:37)
[2018-05-29] MEDS ORDERED: NICOTINE 14 MG PATC TD SCH (19:45)
[2018-05-29] MEDS ORDERED: NICOTINE 7 MG PATC TD ONE (20:11)
[2018-05-29] MEDS: LISINOPRIL 20 MG TABLET PO SCH (20:18)
[2018-05-29] MEDS ORDERED: METOPROLOL SUCCINATE 50 MG TABLET.SA PO SCH (21:00)
[2018-05-29] MEDS: NORMAL SALINE 1,000 ML IV PRN (23:13)
[2018-05-30 06:17] LABS: Hematocrit 30.9 % (37.0-47.0); Hemoglobin 10.9 gm/dL (12.5-16.0); Mean Cell Volume 86.3 fl (78-100); Mean Corpuscular Hemoglobin 30.4 pg (27-31); Mean Corpuscular Hgb Conc 35.3 g/dl (32-36); Mean Platelet Volume 9.3 fl (8-12.5); Neutrophil # 5.3 K/mm3 (1.3-6.0); Neutrophil % 65.7 % (42-75.0); Platelet Count 171 K/mm3 (150-450); Red Blood Count 3.58 M/mm3 (4.2-5.4)
[2018-05-30 06:30] LABS: Albumin * 2.5 gm/dl (3.4-5.0); Anion Gap 14.6 mmol/L (6.8-13.8); BUN/Creatinine Ratio 20.8 (9.0-21.6); Bilirubin, Total 0.6 mg/dL (0.0-1.1); Ca. Corrected For Albumin 8.5 mg/dL (8.4-10.2); Calcium * 7.6 mg/dL (7.9-10.9); Carbon Dioxide 22.6 mmol/L (24-32.6); Potassium 4.2 mmol/L (3.4-4.6); Total Protein 5.6 gm/dL (6.2-8.2)
[2018-05-30] MEDS ORDERED: LEVOTHYROXINE SODIUM 50 MCG TABLET PO SCH (07:00)
[2018-05-30] MEDS ORDERED: PANTOPRAZOLE SODIUM 40 MG TABLET.EC PO SCH (07:00)
[2018-05-30] MEDS: NORMAL SALINE 1,000 ML IV PRN (07:13)
[2018-05-30] MEDS ORDERED: LEVOTHYROXINE SODIUM 100 MCG TABLET PO SCH (09:00)
[2018-05-30] MEDS: LISINOPRIL 20 MG TABLET PO SCH (09:28)
[2018-05-30] MEDS: THIAMINE HCL 100 MG TABLET PO SCH (09:30)
--- NOTE | 2018-05-30 09:57 | DS ---
(1) Alcohol abuse Problem: Chronic (2) Hypothyroidism Problem: Chronic Qualifiers: Hypothyroidism type: postoperative Qualified Code(s): E89.0 - Postprocedural hypothyroidism (3) Hyponatremia Problem: Resolved (4) At risk for seizures Problem: Resolved (5) Hyperkalemia Problem: Resolved Description of Stay: Kim Perez is a 47 yo wh fe. that presented to ER with C/o jittertyness, shakiness, weakness. She admitted to drinking a 1/2 pint of Vodka daily and had a blood ETOH of 33. After rehydration it dropped to 3. Her Na+ initially was 122. After 2 liters of NS the Na+ dropped to 119 and so she was admitted. I have continued NS @ 125cc/hr though the night and this morning the Na+ is 133. Her K+ was elevated @ 5.0 and is down to 4.4 this morning. Her liver enzymes are elevated and slightly higher this morning. This is most likely from alcoholic hepatitis. This morning she is fully alert and is not having any of the jitters she was yesterday. I have educated her as to the effects of alcohol on her pituitary and liver and strongly recommended she stop using all alcohol. She sta sohan she will stop drinking and only did so because her likes to drink. She is discharged to home and may go to work tomorrow. 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 Procedures Performed: none Results and Findings: Lab Pending Results 05/29/18 08:48: WBC 11.2 H, RBC 4.41, Hgb 13.6, Hct 38.3, MCV 86.8, MCH 30.8, MCHC 35.5, RDW 15.3 H, Plt Count 250, MPV 9.0, Immature Gran % (Auto) 0.40, Immature Gran # (Auto) 0.04 H, Neutrophils % 76.3 H, Lymphocytes % 13.6 L, Monocytes % 9.2 H, Eosinophils % 0.2, Basophils % 0.3, Nucleated RBC % 0.0, Neutrophils # 8.6 H, Lymphocytes # 1.53, Monocytes # 1.0, Eosinophils # 0.0, Absolute Basophils 0.0 05/29/18 08:48: Sodium 122 L, Plasma Sodium 122 L, Potassium 4.7 H, Chloride 88 L, Carbon Dioxide 16.9 L, Anion Gap 21.8 H, BUN 38 H D, Creatinine 1.80 H D, Est GFR (Non-Af Amer) 32 L D, BUN/Creatinine Ratio 21.1, Random Glucose 89, Calcium 8.4, Calcium Adj for Albumin 8.6, Total Bilirubin 1.3 H, AST 199 H, ALT 69 H, Alkaline Phosphatase 74, Total Protein 7.6, Albumin 3.4, TSH 1.667, Ethyl Alcohol 33.0 H 05/29/18 15:59: Sodium 119 L, Plasma Sodium 119 L*, Potassium 5.0 H, Chloride 87 L, Carbon Dioxide 20.5 L, Anion Gap 16.5 H, BUN 31 H, Creatinine 1.44 H, Est GFR (Non-Af Amer) 41 L D, BUN/Creatinine Ratio 21.5, Random Glucose 84, Calcium 7.9, Calcium Adj for Albumin 8.3 L, Total Bilirubin 1.2 H, AST 191 H, ALT 69 H, Alkaline Phosphatase 69, Total Protein 6.9, Albumin 3.1 L, Ethyl Alcohol Less than 3.0 05/30/18 05:35: WBC 8.0 D, RBC 3.58 L, Hgb 10.9 L, Hct 30.9 L, MCV 86.3, MCH 30.4, MCHC 35.3, RDW 15.0 H, Plt Count 171, MPV 9.3, Immature Gran % (Auto) 0.60 H, Immature Gran # (Auto) 0.05 H, Neutrophils % 65.7, Lymphocytes % 23.2, Monocytes % 9.8 H, Eosinophils % 0.4, Basophils % 0.3, Nucleated RBC % 0.0, Neutrophils # 5.3, Lymphocytes # 1.85, Monocytes # 0.8, Eosinophils # 0.0, Absolute Basophils 0.0 05/30/18 05:35: Sodium 133, Plasma Sodium 133, Potassium 4.2, Chloride 100, Carbon Dioxide 22.6 L, Anion Gap 14.6 H, BUN 21, Creatinine 1.01, Est GFR (Non- Af Amer) 62 D, BUN/Creatinine Ratio 20.8, Random Glucose 83, Calcium 7.6 L, Calcium Adj for Albumin 8.5, Magnesium 2.0, Total Bilirubin 0.6, AST 244 H, ALT 99 H, Alkaline Phosphatase 56, Total Protein 5.6 L, Albumin 2.5 L Discharge Location: Home Disposition: Home self-care Condition: Good Face to Face Encounter completed per [facility] Guidelines: No Discharge Activity: Activity as tolerated Discharge Diet: General/regular food Referrals: Min Evans MD [Primary Care Provider] - Problem Oriented Discharge Instructions to Patient/Family: Alcoholic Liver Disease, Alcohol Use Disorder Additional Patient Instructions (free text): She is to call scheduling on Friday and make an appointment to se Dr. Evans in about 2 weeks as she will need to repeat her CMP to recheck her elytes and LFTs. She is avoid all alcohol. A note is provided for her so that she may return to work tomorrow. Complete Home Medications List: Complete Home Medication List: levothyroxine 50 mcg tablet 50 mcg PO DAILY #30 tab 03/16/18 furosemide 20 mg tablet 20 mg PO DAILY PRN 03/19/18 levothyroxine 200 mcg tablet 200 mcg PO DAILY 03/19/18 lisinopril 10 mg tablet 20 mg PO BID tab 03/19/18 metoprolol succinate ER 100 mg tablet,extended release 24 hr 150 mg PO QHS tab 03/19/18 omeprazole 40 mg capsule,delayed release 40 mg PO DAILY 03/19/18 rosuvastatin 5 mg tablet 5 mg PO DAILY 03/19/18 Nicotine [Nicoderm] 14 mg TD Q24H patch.td24 05/30/18 Thiamine HCl [Vitamin B-1] 100 mg PO DAILY #100 tablet 05/30/18
[2018-05-30 11:43] VITALS: BP 127/77
== END 2018-05-30 11:00 | disposition home or self-care (01) | DRG 897 ==
LOC: ER 08:12 → MS 08:12
PROVIDERS: ADMIT Family Medicine; ATTEND Family Medicine
CPT/HCPCS: 36415; 80053; 80320; 83735; 84443; 85025; 96360; 96361; 99285; G0481

== ENCOUNTER 2018-06-21 14:12 | Inpatient (IN) ==
[2018-06-21] MEDS ORDERED: LORazepam 1 MG TABLET PO ONE (14:31)
--- NOTE | 2018-06-21 14:40 | ERNOTE ---
Psychological HPI - Date Date of Service: 06/21/18 - General Chief Complaint: Anxiety Source: Reports: patient Exam Limitations: Reports: no limitations - Immun/Allergies/Home Medications Allergies/Adverse Reactions: Allergies tramadol Allergy (Intermediate, Verified 06/21/18 14:23) Itching spironolactone Adverse Reaction (Intermediate, Verified 06/21/18 14:23) "Messes with electrolytes and thryoid" Home Medications: HOME MEDICATIONS furosemide 20 mg tablet 20 mg PO DAILY PRN 03/19/18 [Last Taken 05/29/18] levothyroxine 200 mcg tablet 250 mcg PO DAILY 03/19/18 [Last Taken 05/29/18] lisinopril 10 mg tablet 20 mg PO BID tab 03/19/18 [Last Taken 05/29/18] metoprolol succinate ER 100 mg tablet,extended release 24 hr 150 mg PO QHS tab 03/19/18 [Last Taken Unknown] omeprazole 40 mg capsule,delayed release 40 mg PO DAILY 03/19/18 [Last Taken Unknown] rosuvastatin 5 mg tablet 5 mg PO DAILY 03/19/18 [Last Taken Unknown] Nicotine [Nicoderm] 14 mg TD Q24H patch.td24 05/30/18 [Last Taken Unknown] Thiamine HCl [Vitamin B-1] 100 mg PO DAILY #100 tablet 05/30/18 [Last Taken Unknown] - History of Present Illness Narrative: Patient states she was at work today and suddenly became shakey from a panic attack. 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 Had to leave work to get some relief from the hospital. Patient states this happens weekly but has not been placed on medication at this time. Was in the ER last week with similar symptoms and was told her potassium was high. Otherwise denies any pain or symptoms leading up to the event. Patient denies drinking every day and her last drink was approx 36 hrs ago. However on days she does drink it is likely 1/5 of vodka daily. Time Seen by Provider: 06/21/18 14:24 Date (Duration): 06/21/18 Time (Timing): 14:00 Arrived by: Reports: police Onset/duration: Reports: sudden onset Intent: Reports: other - No intent Situational Problems: Reports: other - Denies any triggers. Associated Symptoms: Reports: other - Denies Prior Treament: Reports: recently seen, similar symptoms before Review of Systems - Review of Systems Constitutional: Present: no symptoms reported EYE: Present: no symptoms reported ENT: Present: no symptoms reported Respiratory: Present: no symptoms reported Cardiology: Present: no symptoms reported, edema Genitourinary: Present: no symptoms reported Musculoskeletal: Present: no symptoms reported Skin: Present: no symptoms reported Neurological: Present: anxiety, tremors. 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 Thoughts/Hallucinations: Present: normal thought pattern, other - No suicidal ideations. Appears to be solely unprovoked anxiety attack. Behavior/Eye Contact/Speech: Present: good eye contact, normal speech Eye Exam: Normal inspection: bilateral, PERRL: bilateral, EOMI: bilateral Respiratory: Present: no respiratory distress, normal breath sounds, no accessory muscle use, lungs clear Cardiovascular/Chest: Present: regular rate, rhythm, no murmur Gastrointestinal/Abdominal: Present: normal bowel sounds, nondistended, soft Extremity Exam: Present: normal range of motion, no edema Skin Exam: Present: normal color, warm/dry ED Progress - Results and Orders Patient's Lab Results:: I have reviewed the patient's lab results. - Vital Signs Patient's Vital Signs:: I have reviewed the patient's vital signs. Vital Signs: Vital Signs 06/21/18 14:18 Temperature 36.4 C Pulse Rate 78 Respiratory Rate 18 Blood Pressure 119/78 O2 Sat by Pulse Oximetry 98 - Progress/Reassessment Chief Complaint: Anxiety Progress:: Improved - Transfer of Care Additional Notes: Discussed patient with Dr. Richards who will accept patient for inpatient treatment. Request starting 3% sodium gtt along with labs for hyponatremia workup. No seizures or mental status changes at this time. No indication of neurological emergency. Time Seen by Provider: 06/21/18 14:24 Departure Clinical Impression: Hyponatremia, Alcohol abuse - Departure Disposition: Still a patient Condition: Stable
[2018-06-21 14:45] LABS: Hematocrit 31.2 % (37.0-47.0); Hemoglobin 10.9 gm/dL (12.5-16.0); Mean Cell Volume 87.4 fl (78-100); Mean Corpuscular Hemoglobin 30.5 pg (27-31); Mean Corpuscular Hgb Conc 34.9 g/dl (32-36); Mean Platelet Volume 8.2 fl (8-12.5); Neutrophil # 4.3 K/mm3 (1.3-6.0); Neutrophil % 51.5 % (42-75.0); Platelet Count 272 K/mm3 (150-450); Red Blood Count 3.57 M/mm3 (4.2-5.4); Red Cell Distribution Width 15.9 % (11.5-14.0); White Blood Count 8.3 K/mm3 (4.0-10.5)
[2018-06-21 14:51] LABS: BUN/Creatinine Ratio 10.8 (9.0-21.6); Calcium * 8.6 mg/dL (7.9-10.9); Carbon Dioxide 17.3 mmol/L (24-32.6); Magnesium 1.4 mg/dL (1.2-2.8); Potassium 4.3 mmol/L (3.4-4.6)
[2018-06-21] MEDS ORDERED: NORMAL SALINE 1,000 ML IV ONE (15:06)
[2018-06-21] MEDS ORDERED: SODIUM CHLORIDE 3 % 500 ML IV SCH ×4 (15:30→21:45)
[2018-06-21 16:11] LABS: Urine Appearance Clear (CLEAR); Urine Bacteria None Seen; Urine Bilirubin Negative (NEGATIVE); Urine Blood Negative /ul (NEGATIVE); Urine Color Yellow; Urine Ketone 5 mg/dL (NEGATIVE); Urine Nitrite Negative (NEGATIVE); Urine Protein Negative (NEGATIVE); Urine RBC None Seen /hpf (0-5); Urine Specific Gravity 1.005 SP.GR. (1.005-1.010); Urine Urobilinogen Normal (NORMAL); Urine WBC None Seen /hpf (0-5)
[2018-06-21] MEDS ORDERED: DIAZEPAM 5 MG TABLET PO PRN (18:39)
[2018-06-21] MEDS ORDERED: NICOTINE 7 MG PATC TD ONE (19:05)
[2018-06-21] MEDS ORDERED: ROSUVASTATIN CALCIUM 10 MG TABLET PO SCH (19:15)
[2018-06-21] MEDS: NICOTINE 14 MG PATC TD SCH (19:17)
[2018-06-21 19:18] LABS: Albumin * 2.6 gm/dl (3.4-5.0); Anion Gap 11.6 mmol/L (6.8-13.8); Bilirubin, Total 0.8 mg/dL (0.0-1.1); Ca. Corrected For Albumin 8.6 mg/dL (8.4-10.2); Calcium * 7.8 mg/dL (7.9-10.9); Carbon Dioxide 21.9 mmol/L (24-32.6); Potassium 4.5 mmol/L (3.4-4.6)
--- NOTE | 2018-06-21 19:35 | HP ---
Chief Complaint - Chief Complaint Date of Service: 06/21/18 Time of Service: 19:13 Chief Complaint: I had a panic attack and now I'm shaky since this morning. History of Present Illness: 47-year-old female with past medical history of hypothyroidism secondary to thyroidectomy, panic disorder, anxiety disorder, hypertension, GERD, hyperlipidemia, alcoholism, and surgical history of thyroidectomy, gastric bypass, cholecystectomy, came to the ER due to worsening tremors, lightheadedness, palpitations, and apparent panic attack that all started while the patient was at work earlier this morning. Patient was hospitalized 2 weeks ago for similar symptoms during which time she was found to be profoundly hyponatremic with accompanying hyperkalemia, patient was then treated for electrolyte imbalance. She required sodium replacement but responded favorably. Because of severe hyponatremia is not yet known, however we will admit patient to inpatient [facility] for workup for profound hyponatremia will be ordered. Electrolyte replacement specifically sodium replacement with hypotonic saline will be ordered with periodic BMP to monitor sodium levels. Patient will be patient placed on a lunchroom monitor and she will be administered medication for alcohol withdrawal since her last alcohol consumption was this past Friday, anxiolytics have also been ordered on a as needed basis. We will continue to monitor her closely for neurological changes or any adverse events. 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 Smoking Status Current every day smoker Have you smoked in the past 12 Yes months Do you dip or chew tobacco No Abuse History No History of abuse Psych History Hx of Anxiety Alcohol Use heavy Drug Use none (Last Updated 03/19/18 @ 14:11 by Maria Eugenia Izaguirre) No Social History Section defined Peds Patient Hx - Developmental: No Pertinent Hx Peds Patient Hx - Medical: No Pertinent Hx Peds Patient Hx - Cardiac/Respiratory: No Pertinent Hx Peds Patient Hx - Surgical: No Surgical History Patient History - Cancer: No Hx of Cancer Review Of Systems (GEN) - Review of Systems Generalized/Overall Review: Present: Weakness EENTM: Present: No Symptoms Reported Respiratory: Present: No Symptoms Reported Cardiac: Present: No Symptoms Reported Abdominal: Present: No Symptoms Reported Genitourinary: Present: No Symptoms Reported Musculoskeletal: Present: No Symptoms Reported Neurological: Present: Anxiety, Parasthesia, Tremors, Weakness Skin: Present: No Symptoms Reported Endocrine: Present: No Symptoms Reported Immunizations: IMMUNIZATION HX Immunizations Up to Date Yes History of Influenza Vaccine Yes Hx Pneumococcal Vaccination No Allergies/Adverse Reactions: Allergies Allergy/AdvReac Type Severity Reaction Status Date / Time tramadol Allergy Intermediate Itching Verified 06/21/18 14:23 spironolactone AdvReac Intermediate "Messes Verified 06/21/18 14:23 with electrolytes and thryoid" Home Medications: HOME MEDICATIONS furosemide 20 mg tablet 20 mg PO DAILY PRN 03/19/18 [Last Taken 06/21/18 06:00] levothyroxine 200 mcg tablet 250 mcg PO DAILY 03/19/18 [Last Taken 06/21/18 06:00] lisinopril 10 mg tablet 20 mg PO BID tab 03/19/18 [Last Taken 06/21/18 06:00] metoprolol succinate ER 100 mg tablet,extended release 24 hr 150 mg PO QHS tab 03/19/18 [Last Taken 06/21/18 06:00] omeprazole 40 mg capsule,delayed release 40 mg PO DAILY 03/19/18 [Last Taken 06/21/18 06:00] rosuvastatin 5 mg tablet 5 mg PO DAILY 03/19/18 [Last Taken 06/21/18 06:00] Nicotine [Nicoderm] 14 mg TD Q24H patch.td24 05/30/18 [Last Taken 06/21/18 06:00] Thiamine HCl [Vitamin B-1] 100 mg PO DAILY #100 tablet 05/30/18 [Last Taken 06/21/18 06:00] Exam - Exam Vital Signs: Vital Signs - Last Taken Temp 36.4 C 06/21/18 15:45 Pulse 71 06/21/18 16:47 Resp 21 H 06/21/18 16:30 BP 149/75 H 06/21/18 16:30 Pulse Ox 100 06/21/18 16:30 Constitutional: Present: Alert, Oriented x3, Cooperative, Well developed, Well nourished, No distress, Obese ENT Exam: Present: normal ENT inspection, hearing grossly normal, pharynx normal, TMs normal Eye Exam: bilateral eye: normal inspection, PERRL, EOMI Neck: Present: non-tender, full range of motion, supple, normal inspection, trachea midline Back Exam: Present: normal inspection, no CVA tenderness, no vertebral tenderness Breasts: Present: Exam deferred Respiratory: Present: chest non-tender, lungs clear, normal breath sounds, no respiratory distress, no accessory muscle use Cardiovascular/Chest: Present: normal peripheral pulses, regular rate, rhythm, no chest tenderness, no edema, no gallop, no JVD, no murmur, no rub Peripheral Pulses: carotid (R): 4+, carotid (L): 4+, femoral (R): 4+, femoral (L): 4+, dorsalis-pedis (R): 4+, dorsalis-pedis (L): 4+ Abdomen: Present: Normal bowel sounds, soft, nontender, nondistended, no rebound tenderness, no hepatospenomegaly, no masses, obese /Rectal: Present: Exam deferred Extremity: Present: normal range of motion, non-tender, normal inspection, no pedal edema, no calf tenderness, normal capillary refill Skin Exam: Present: normal color, warm/dry, no cyanosis Lymphatic: Present: no adenopathy 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 fine Tremor Appearance: Present: appropriate appearance, appropriate insight, neat, no memory impairment Eye contact: Present: cooperative, good eye contact, normal speech Thoughts: Present: normal thought pattern, no apparent hallucination Diagnostic Studies: Abnormal Lab Results 06/21/18 06/21/18 06/21/18 Range/Units 14:39 14:39 15:52 RBC 3.57 L (4.2-5.4) M/mm3 Hgb 10.9 L (12.5-16.0) gm/dL Hct 31.2 L (37.0-47.0) % RDW 15.9 H (11.5-14.0) % Immature Gran % (Auto) 0.80 H (0.001-0.429) % Immature Gran # (Auto) 0.07 H (0.000-0.0310) K/mm3 Monocytes % 11.0 H (0.0-9) % Basophils % 1.1 H (0.0-1.0) % Sodium 113 L* D (132-142) mmol/L Plasma Sodium 113 L* (130-142) mmol/L Chloride 82 L (97-106) mmol/L Carbon Dioxide 17.3 L (24-32.6) mmol/L Anion Gap 18.0 H (6.8-13.8) mmol/L Ur Random Sodium 18 L (20-110) mmol/L Laboratory Results WBC 8.3 K/mm3 (4.0-10.5) 06/21/18 14:39 RBC 3.57 M/mm3 (4.2-5.4) L 06/21/18 14:39 Hgb 10.9 gm/dL (12.5-16.0) L 06/21/18 14:39 Hct 31.2 % (37.0-47.0) L 06/21/18 14:39 MCV 87.4 fl (78-100) 06/21/18 14:39 MCH 30.5 pg (27-31) 06/21/18 14:39 MCHC 34.9 g/dl (32-36) 06/21/18 14:39 RDW 15.9 % (11.5-14.0) H 06/21/18 14:39 Plt Count 272 K/mm3 (150-450) 06/21/18 14:39 MPV 8.2 fl (8-12.5) 06/21/18 14:39 Immature Gran % (Auto) 0.80 % (0.001-0.429) H 06/21/18 14:39 Immature Gran # (Auto) 0.07 K/mm3 (0.000-0.0310) H 06/21/18 14:39 Neutrophils % 51.5 % (42-75.0) 06/21/18 14:39 Lymphocytes % 33.9 % (20-51) 06/21/18 14:39 Monocytes % 11.0 % (0.0-9) H 06/21/18 14:39 Eosinophils % 1.7 % (0.0-3.0) 06/21/18 14:39 Basophils % 1.1 % (0.0-1.0) H 06/21/18 14:39 Nucleated RBC % 0.0 k/mm3 (0-1) 06/21/18 14:39 Neutrophils # 4.3 K/mm3 (1.3-6.0) 06/21/18 14:39 Lymphocytes # 2.81 k/mm3 (1.5-3.5) 06/21/18 14:39 Monocytes # 0.9 k/mm3 (0.0-1.0) 06/21/18 14:39 Eosinophils # 0.1 k/mm3 (0.0-0.7) 06/21/18 14:39 Absolute Basophils 0.1 k/mm3 (0.0-0.1) 06/21/18 14:39 Sodium 113 mmol/L (132-142) L* D 06/21/18 14:39 Plasma Sodium 113 mmol/L (130-142) L* 06/21/18 14:39 Potassium 4.3 mmol/L (3.4-4.6) 06/21/18 14:39 Chloride 82 mmol/L (97-106) L 06/21/18 14:39 Carbon Dioxide 17.3 mmol/L (24-32.6) L 06/21/18 14:39 Anion Gap 18.0 mmol/L (6.8-13.8) H 06/21/18 14:39 BUN 11 mg/dL (3-23) 06/21/18 14:39 Creatinine 1.02 mg/dL (0.4-1.4) 06/21/18 14:39 Est GFR (Non-Af Amer) 61 mL/min (60-130) 06/21/18 14:39 BUN/Creatinine Ratio 10.8 (9.0-21.6) 06/21/18 14:39 Random Glucose 79 mg/dL (70-110) 06/21/18 14:39 Calcium 8.6 mg/dL (7.9-10.9) 06/21/18 14:39 Magnesium 1.4 mg/dL (1.2-2.8) 06/21/18 14:39 Urine Color Yellow 06/21/18 15:52 Urine Appearance Clear (CLEAR) 06/21/18 15:52 Urine pH 6.0 pH (5.0-7.0) 06/21/18 15:52 Ur Specific [place] 1.005 SP.GR. (1.005-1.010) 06/21/18 15:52 Urine Protein Negative mg/dL (NEGATIVE) 06/21/18 15:52 Urine Glucose (UA) Negative mg/dL (NEGATIVE) 06/21/18 15:52 Urine Ketones 5 mg/dL (NEGATIVE) 06/21/18 15:52 Urine Blood Negative /ul (NEGATIVE) 06/21/18 15:52 Urine Nitrate Negative (NEGATIVE) 06/21/18 15:52 Urine Bilirubin Negative mg/dl (NEGATIVE) 06/21/18 15:52 Urine Urobilinogen Normal EU/dl (NORMAL) 06/21/18 15:52 Ur Leukocyte Esterase Negative /ul (NEGATIVE) 06/21/18 15:52 Urine RBC None seen /hpf (0-5) 06/21/18 15:52 Urine WBC None seen /hpf (0-5) 06/21/18 15:52 Ur Epithelial Cells None seen /hpf (0-5) 06/21/18 15:52 Urine Bacteria None seen (NONE) 06/21/18 15:52 Urine Culture Comments No culture indicated 06/21/18 15:52 Ur Random Sodium 18 mmol/L (20-110) L 06/21/18 15:52 Assessment/Plan - Narrative Narrative: Patient was admitted to inpatient [facility]men[facility] with the diagnosis of profound hyponatremia, she will be treated with sodium replacement therapy with IV fluids and undergo periodic lab testing for monitoring of sodium levels. Seizure prophylaxis for alcohol withdrawal was ordered on a as needed basis as well as thiamine replacement and a nicotine patch. Workup for cause of hyponatremia with TSH and liver panel are pending, in the meantime we will continue to monitor her vital telemetry and bedside evaluation. We will resume all routine meds to be administered during the hospitalization. - Assessment/Plan (1) Hyponatremia Problem: Acute (2) Alcohol withdrawal Problem: Acute (3) Anxiety Problem: Acute (4) Nicotine dependence Problem: Acute (5) At risk for seizures Problem: Acute
[2018-06-21] MEDS: METOPROLOL SUCCINATE 50 MG TABLET.SA PO SCH (20:08)
[2018-06-21] MEDS: ENOXAPARIN SODIUM 40 MG/0.4 ML SYRG SC SCH (20:32)
[2018-06-21] MEDS ORDERED: LISINOPRIL 10 MG TABLET PO SCH (21:00)
[2018-06-21 21:21] LABS: Anion Gap 10.7 mmol/L (6.8-13.8); BUN/Creatinine Ratio 13.3 (9.0-21.6); Calcium * 7.9 mg/dL (7.9-10.9); Carbon Dioxide 23.8 mmol/L (24-32.6); Estimated Creat Clear 62.5; Potassium 4.5 mmol/L (3.4-4.6)
[2018-06-21 22:58] LABS: Anion Gap 10.3 mmol/L (6.8-13.8); BUN/Creatinine Ratio 15.1 (9.0-21.6); Estimated Creat Clear 65.8; Potassium 4.3 mmol/L (3.4-4.6)
[2018-06-21] MEDS ORDERED: MULTIVIT INFUSN,ADULT 4,VIT K 10 ML, THIAMINE HCL 100 MG in NORMAL SALINE 1,000 ML IV SCH (23:00)
[2018-06-22 06:02] LABS: Anion Gap 7.7 mmol/L (6.8-13.8); BUN/Creatinine Ratio 13.3 (9.0-21.6); Calcium * 8.5 mg/dL (7.9-10.9); Carbon Dioxide 27.8 mmol/L (24-32.6); Estimated Creat Clear 62.5; Potassium 4.5 mmol/L (3.4-4.6)
--- NOTE | 2018-06-22 08:24 | PN ---
Subjective - Date and Time Seen Date: 06/22/18 Time: 08:12 Subjective Narrative: patient feeling better. She says that she still a pint of alcohol about 3 x a week and her last one was Friday. On Friday she started feeling shaky, trembly and started increasing her fluid intake cause she thought she could be dehydrated. she went to work and started hetting dizzy and confused. Objective - Review of Systems Generalized/Overall Review: Denies: Chills, Fever Respiratory: Denies: Cough, Shortness of Breath Cardiac: Denies: Chest Pain, Edema, Palpitations Abdominal: Denies: Nausea, Vomiting, Diarrhea Genitourinary Symptoms: Denies: Urgency, Frequency Musculoskeletal Complaints: Denies: Joint Pain - Vitals Vitals: Last Vital Signs Temp 36.2 C 06/22/18 06:56 Pulse 70 06/22/18 06:56 Resp 16 06/22/18 06:56 BP 142/76 H 06/22/18 06:56 Pulse Ox 99 06/22/18 06:56 - Abnormal Lab Findings Abnormal Lab Findings: Abnormal Lab Results 06/21/18 06/21/18 06/21/18 Range/Units 14:39 14:39 15:52 RBC 3.57 L (4.2-5.4) M/mm3 Hgb 10.9 L (12.5-16.0) gm/dL Hct 31.2 L (37.0-47.0) % RDW 15.9 H (11.5-14.0) % Immature Gran % (Auto) 0.80 H (0.001-0.429) % Immature Gran # (Auto) 0.07 H (0.000-0.0310) K/mm3 Monocytes % 11.0 H (0.0-9) % Basophils % 1.1 H (0.0-1.0) % Sodium 113 L* D (132-142) mmol/L Plasma Sodium 113 L* (130-142) mmol/L Chloride 82 L (97-106) mmol/L Carbon Dioxide 17.3 L (24-32.6) mmol/L Anion Gap 18.0 H (6.8-13.8) mmol/L Est GFR (Non-Af Amer) (60-130) mL/min Random Glucose (70-110) mg/dL Calcium (7.9-10.9) mg/dL Total Protein (6.2-8.2) gm/dL Albumin (3.4-5.0) gm/dl Ur Random Sodium 18 L (20-110) mmol/L 06/21/18 06/21/18 06/21/18 Range/Units 18:52 21:05 22:45 RBC (4.2-5.4) M/mm3 Hgb (12.5-16.0) gm/dL Hct (37.0-47.0) % RDW (11.5-14.0) % Immature Gran % (Auto) (0.001-0.429) % Immature Gran # (Auto) (0.000-0.0310) K/mm3 Monocytes % (0.0-9) % Basophils % (0.0-1.0) % Sodium 116 L* 119 L 121 L (132-142) mmol/L Plasma Sodium 117 L* 119 L* 121 L (130-142) mmol/L Chloride 87 L 89 L 91 L (97-106) mmol/L Carbon Dioxide 21.9 L 23.8 L (24-32.6) mmol/L Anion Gap (6.8-13.8) mmol/L Est GFR (Non-Af Amer) 57 L (60-130) mL/min Random Glucose 149 H D (70-110) mg/dL Calcium 7.8 L (7.9-10.9) mg/dL Total Protein 6.0 L (6.2-8.2) gm/dL Albumin 2.6 L (3.4-5.0) gm/dl Ur Random Sodium (20-110) mmol/L 06/22/18 Range/Units 05:45 RBC (4.2-5.4) M/mm3 Hgb (12.5-16.0) gm/dL Hct (37.0-47.0) % RDW (11.5-14.0) % Immature Gran % (Auto) (0.001-0.429) % Immature Gran # (Auto) (0.000-0.0310) K/mm3 Monocytes % (0.0-9) % Basophils % (0.0-1.0) % Sodium 127 L (132-142) mmol/L Plasma Sodium 127 L (130-142) mmol/L Chloride 96 L (97-106) mmol/L Carbon Dioxide (24-32.6) mmol/L Anion Gap (6.8-13.8) mmol/L Est GFR (Non-Af Amer) (60-130) mL/min Random Glucose (70-110) mg/dL Calcium (7.9-10.9) mg/dL Total Protein (6.2-8.2) gm/dL Albumin (3.4-5.0) gm/dl Ur Random Sodium (20-110) mmol/L - Exam Constitutional: Present: Alert, Oriented x3, Cooperative ENT Exam: Present: hearing grossly normal Neck: Present: supple Respiratory: Present: normal breath sounds, No rales, No wheezing Cardiovascular/Chest: Present: regular rate, rhythm, no JVD, no murmur Abdomen: Present: Normal bowel sounds, soft, nontender, nondistended Extremity: Present: no calf tenderness, pedal edema - trace Assessment/Plan - Problems/Diagnosis (1) Hyponatremia Problem: Acute Narrative: Na 127. likely hypotonic, euvolemic vs hypervolemic, hyponatremia. will continue with fluid restriction . will add BNP. (2) Anxiety Problem: Acute (3) Alcohol abuse Problem: Chronic Narrative: continue with w/drawal protocol. (4) HTN (hypertension) Problem: Chronic Qualifiers: Hypertension type: essential hypertension Qualified Code(s): I10 - Essential (primary) hypertension
[2018-06-22] MEDS: LISINOPRIL 20 MG TABLET PO SCH ×2 (08:33→20:16)
[2018-06-22] MEDS: PANTOPRAZOLE SODIUM 40 MG TABLET.EC PO SCH (08:33)
[2018-06-22] MEDS: THIAMINE HCL 100 MG TABLET PO SCH (08:33)
[2018-06-22 08:49] LABS: Chol/HDL Risk Ratio 1.7 mg/dL (3.3-4.4)
[2018-06-22 17:56] LABS: Anion Gap 11.8 mmol/L (6.8-13.8); BUN/Creatinine Ratio 12.9 (9.0-21.6); Calcium * 9.3 mg/dL (7.9-10.9); Carbon Dioxide 26.1 mmol/L (24-32.6); Estimated Creat Clear 49.4; Potassium 4.9 mmol/L (3.4-4.6)
[2018-06-22] MEDS: NICOTINE 14 MG PATC TD SCH (18:49)
[2018-06-22] MEDS: ENOXAPARIN SODIUM 40 MG/0.4 ML SYRG SC SCH (20:15)
[2018-06-22] MEDS: METOPROLOL SUCCINATE 50 MG TABLET.SA PO SCH (20:16)
[2018-06-22] MEDS ORDERED: ROSUVASTATIN CALCIUM 10 MG TABLET PO SCH (21:00)
[2018-06-23 06:40] LABS: Anion Gap 10.1 mmol/L (6.8-13.8); BUN/Creatinine Ratio 11.8 (9.0-21.6); Calcium * 8.7 mg/dL (7.9-10.9); Carbon Dioxide 28.3 mmol/L (24-32.6); Estimated Creat Clear 55.7; Potassium 4.4 mmol/L (3.4-4.6)
[2018-06-23] MEDS: LISINOPRIL 20 MG TABLET PO SCH (09:43)
[2018-06-23] MEDS: PANTOPRAZOLE SODIUM 40 MG TABLET.EC PO SCH (09:43)
[2018-06-23] MEDS: THIAMINE HCL 100 MG TABLET PO SCH (09:43)
--- NOTE | 2018-06-23 09:56 | DS ---
(1) Hyponatremia Problem: Resolved (2) Anxiety Diagnosis(s): will start her on Sertraline Problem: Acute (3) Alcohol abuse Problem: Chronic (4) HTN (hypertension) Problem: Chronic Qualifiers: Hypertension type: essential hypertension Qualified Code(s): I10 - Essential (primary) hypertension Description of Stay: , Kim Perez, is a 47-year-old female with past medical history of hypothyroidism secondary to thyroidectomy, panic disorder, anxiety disorder, hypertension, GERD, hyperlipidemia, alcoholism, and surgical history of thyroidectomy, gastric bypass, cholecystectomy, who was admitted on 06/21/2018 due to worsening tremors, lightheadedness, palpitations, and apparent panic attack that all started while the patient was at work earlier this morning. Patient was hospitalized 2 weeks ago for similar symptoms during which time she was found to be profoundly hyponatremic with accompanying hyperkalemia, patient was then treated for electrolyte imbalance. She required sodium replacement but responded favorably. Electrolyte replacement specifically sodium replacement with hypertonic saline was done with periodic BMP to monitor sodium levels. Her sodium normalized . She says whenever she get anxious she starts drinking lots of fluids which could explain her hyponatremia as she euvolemic. . Her BNP was also elevated which could point to her iscehmic cardiomyopathy with CHF as the cause of her low Na but she was not hypervolemic clinically. She is now stable to be discharged today and will put her on an SSRI for anxiety. Procedures Performed: none Results and Findings: Lab Pending Results 06/21/18 14:39: WBC 8.3, RBC 3.57 L, Hgb 10.9 L, Hct 31.2 L, MCV 87.4, MCH 30.5, MCHC 34.9, RDW 15.9 H, Plt Count 272, MPV 8.2, Immature Gran % (Auto) 0.80 H, Immature Gran # (Auto) 0.07 H, Neutrophils % 51.5, Lymphocytes % 33.9, Monocytes % 11.0 H, Eosinophils % 1.7, Basophils % 1.1 H, Nucleated RBC % 0.0, Neutrophils # 4.3, Lymphocytes # 2.81, Monocytes # 0.9, Eosinophils # 0.1, Absolute Basophils 0.1 06/21/18 14:39: Sodium 113 L* D, Plasma Sodium 113 L*, Potassium 4.3, Chloride 82 L, Carbon Dioxide 17.3 L, Anion Gap 18.0 H, BUN 11, Creatinine 1.02, Est GFR (Non-Af Amer) 61, BUN/Creatinine Ratio 10.8, Random Glucose 79, Calcium 8.6, Magnesium 1.4 06/21/18 15:52: Ur Random Sodium 18 L 06/21/18 15:52: Urine Color Yellow, Urine Appearance Clear, Urine pH 6.0, Ur Specific [place] 1.005, Urine Protein Negative, Urine Glucose (UA) Negative, Urine Ketones 5, Urine Blood Negative, Urine Nitrate Negative, Urine Bilirubin N egative, Urine Urobilinogen Normal, Ur Leukocyte Esterase Negative, Urine RBC None seen, Urine WBC None seen, Ur Epithelial Cells None seen, Urine Bacteria None seen, Urine Culture Comments No culture indicated 06/21/18 18:52: Sodium 116 L*, Plasma Sodium 117 L*, Potassium 4.5, Chloride 87 L, Carbon Dioxide 21.9 L, Anion Gap 11.6, BUN 12, Creatinine 1.09, Est GFR (Non- Af Amer) 57 L, BUN/Creatinine Ratio 11.0, Random Glucose 149 H D, Calcium 7.8 L, Calcium Adj for Albumin 8.6, Total Bilirubin 0.8, AST 34, ALT 19, Alkaline Phosphatase 71, Total Protein 6.0 L, Albumin 2.6 L 06/21/18 19:00: TSH 0.404 06/21/18 21:05: Sodium 119 L, Plasma Sodium 119 L*, Potassium 4.5, Chloride 89 L, Carbon Dioxide 23.8 L, Anion Gap 10.7, BUN 13, Creatinine 0.98, Est GFR (Non- Af Amer) 64, BUN/Creatinine Ratio 13.3, Random Glucose 104 D, Calcium 7.9 06/21/18 22:45: Sodium 121 L, Plasma Sodium 121 L, Potassium 4.3, Chloride 91 L, Carbon Dioxide 24.0, Anion Gap 10.3, BUN 14, Creatinine 0.93, Est GFR (Non-Af Amer) 68, BUN/Creatinine Ratio 15.1, Random Glucose 81, Calcium 8.0 06/22/18 05:45: Sodium 127 L, Plasma Sodium 127 L, Potassium 4.5, Chloride 96 L, Carbon Dioxide 27.8, Anion Gap 7.7, BUN 13, Creatinine 0.98, Est GFR (Non-Af Amer) 64, BUN/Creatinine Ratio 13.3, Random Glucose 85, Calcium 8.5 06/22/18 05:45: B-Natriuretic Peptide 4151 H, Triglycerides 71, Cholesterol 204 H, LDL Cholesterol 73, VLDL Cholesterol 14, HDL Cholesterol 117 H, Cholesterol/ HDL Ratio 1.7 L 06/22/18 17:45: Sodium 131 L, Plasma Sodium 131, Potassium 4.9 H, Chloride 98, Carbon Dioxide 26.1, Anion Gap 11.8, BUN 16, Creatinine 1.24, Est GFR (Non-Af Am er) 49 L D, BUN/Creatinine Ratio 12.9, Random Glucose 118 H D, Calcium 9.3 06/23/18 05:25: Sodium 136, Plasma Sodium 136, Potassium 4.4, Chloride 102, Carbon Dioxide 28.3, Anion Gap 10.1, BUN 13, Creatinine 1.10, Est GFR (Non-Af Amer) 56 L, BUN/Creatinine Ratio 11.8, Random Glucose 98, Calcium 8.7 Discharge Location: Home Disposition: Home self-care Condition: Stable Discharge Activity: Activity as tolerated Discharge Diet: Low salt Referrals: Min Evans MD [Primary Care Provider] - Problem Oriented Discharge Instructions to Patient/Family: Form - Excuse from Work, School, or Physical Activity Additional Patient Instructions (free text): Follow up with PCP in 4 weeks. Prescriptions (Any new or edited meds): Sertraline HCl [Zoloft] 25 mg PO DAILY #90 tablet Complete Home Medications List: Complete Home Medication List: furosemide 20 mg tablet 20 mg PO DAILY PRN 03/19/18 levothyroxine 200 mcg tablet 250 mcg PO DAILY 03/19/18 lisinopril 10 mg tablet 20 mg PO BID tab 03/19/18 metoprolol succinate ER 100 mg tablet,extended release 24 hr 150 mg PO QHS tab 03/19/18 omeprazole 40 mg capsule,delayed release 40 mg PO DAILY 03/19/18 rosuvastatin 5 mg tablet 5 mg PO DAILY 03/19/18 Nicotine [Nicoderm] 14 mg TD Q24H patch.td24 05/30/18 Thiamine HCl [Vitamin B-1] 100 mg PO DAILY #100 tablet 05/30/18 Sertraline HCl [Zoloft] 25 mg PO DAILY #90 tablet 06/23/18
[2018-06-23 12:05] VITALS: BP 127/86
== END 2018-06-23 11:40 | disposition home or self-care (01) | DRG 641 ==
LOC: ER 14:12 → MS 15:36
PROVIDERS: ADMIT Family Medicine; ATTEND Internal Medicine
CPT/HCPCS: 36415; 80048; 80053; 80061; 81001; 82533; 83519; 83735; 83880; 83930; 83935; 84300; 84443; 85025; 96360; 96361; 99285

== ENCOUNTER 2018-10-15 09:43 | Observation (INO) ==
[2018-10-15 10:14] LABS: Mean Cell Volume 110.4 fl (78-100); Mean Corpuscular Hemoglobin 35.8 pg (27-31); Mean Corpuscular Hgb Conc 32.4 g/dl (32-36); Mean Platelet Volume 9.4 fl (8-12.5); Neutrophil % 56.1 % (42-75.0); Platelet Count 339 K/mm3 (150-450); Red Blood Count 2.01 M/mm3 (4.2-5.4); Red Cell Distribution Width 14.6 % (11.5-14.0); White Blood Count 7.2 K/mm3 (4.0-10.5)
[2018-10-15 10:15] LABS: Prothrombin Time (Patient) 11.4 Seconds (9.1-10.7)
[2018-10-15 10:16] LABS: INR 1.16 INR (0.92-1.08)
[2018-10-15 10:31] LABS: Hematocrit 22.2 % (37.0-47.0); Hemoglobin 7.2 gm/dL (12.5-16.0)
[2018-10-15 10:45] LABS: Iron 134 mcg/dL (35-120); Transferrin Sat. (% Sat.) 105 % (15-55)
[2018-10-15 10:55] LABS: ALT 52 U/L (19-67); AST 128 U/L (0-48); Albumin * 2.7 gm/dl (3.4-5.0); Alkaline Phosphatase * 363 U/L (50-170); Amylase * 36 U/L (25-115); Anion Gap 26.6 mmol/L (6.8-13.8); BNP * 1301 pg/mL (5-150); BUN/Creatinine Ratio 7.7 (9.0-21.6); Bilirubin, Total 2.7 mg/dL (0.0-1.1); Blood Urea Nitrogen 11 mg/dL (3-23); Ca. Corrected For Albumin 9.2 mg/dL (8.4-10.2); Calcium * 8.5 mg/dL (7.9-10.9); Carbon Dioxide 19.6 mmol/L (24-32.6); Chloride 92 mmol/L (97-106); Ferritin 772 ng/mL (8-252); Folate 10.4 ng/mL (8.6-58.9); Glucose * 88 mg/dL (70-110); Lipase 453 U/L (73-393); Potassium 3.2 mmol/L (3.4-4.6); Sodium 135 mmol/L (132-142); T4 Free * 1.07 ng/dL (0.76-1.46); TSH * 32.602 uIU/mL (0.358-3.74); Total Protein 6.8 gm/dL (6.2-8.2)
[2018-10-15 13:22] LABS: Total Cells Counted 100
[2018-10-15 13:28] LABS: Band 19 % (0-2.0); Basophil 2 % (0-1); Lymphocyte 27 % (20-51); Monocyte 2 % (0-9); Neutrophil 50 % (42-75); Neutrophil # 3.6 K/mm3 (1.3-6.0)
[2018-10-15 13:29] LABS: Dohle Bodies Trace; Platelet Estimate Normal (NORMAL)
[2018-10-15] MEDS ORDERED: FUROSEMIDE 10 MG/ML VIAL IV PRN (14:11)
--- NOTE | 2018-10-15 16:49 | PN ---
Deya Note - Interim Date: 10/15/18 Time: 16:45 Narrative: 10/15/18 16:45 The patient was seen in the med-surg floor on 10/15/2018 and the there is no change with her admitting diagnosis from the clinic. We will continue with the plan of transfusing patient for her symptomatic anemia. we will also do US of the abdomen and pending results probably a CTS of the abdomen and pelvis for her . Her jaundice and elevated LFTS are likely due ot her alcohol but could also be due to hemochromatosis. The office notes will serve as my history and physical.
[2018-10-15] MEDS ORDERED: ACETAMINOPHEN 500 MG TABLET PO PRN (16:58)
[2018-10-15] MEDS ORDERED: NICOTINE 21 MG PATC TD SCH (17:00)
[2018-10-15] MEDS: CIPROFLOXACIN HCL 250 MG TABLET PO SCH (20:56)
[2018-10-16 00:27] LABS: Hematocrit 23.7 % (37.0-47.0)
[2018-10-16] MEDS ORDERED: LEVOTHYROXINE SODIUM 50 MCG TABLET PO SCH (07:00)
[2018-10-16] MEDS ORDERED: LEVOTHYROXINE SODIUM 100 MCG TABLET PO SCH (07:00)
[2018-10-16 08:15] LABS: Hematocrit 25.8 % (37.0-47.0); Hemoglobin 8.5 gm/dL (12.5-16.0); Mean Cell Volume 97.4 fl (78-100); Mean Corpuscular Hemoglobin 32.1 pg (27-31); Mean Corpuscular Hgb Conc 32.9 g/dl (32-36); Neutrophil # 3.6 K/mm3 (1.3-6.0); Neutrophil % 65.9 % (42-75.0); Platelet Count 205 K/mm3 (150-450); Red Blood Count 2.65 M/mm3 (4.2-5.4); Red Cell Distribution Width 20.7 % (11.5-14.0); White Blood Count 5.5 K/mm3 (4.0-10.5)
[2018-10-16 08:32] LABS: Anion Gap 15.4 mmol/L (6.8-13.8); BUN/Creatinine Ratio 6.4 (9.0-21.6); Calcium * 7.7 mg/dL (7.9-10.9); Carbon Dioxide 26.4 mmol/L (24-32.6); Estimated Creat Clear 38.8; Potassium 2.8 mmol/L (3.4-4.6)
[2018-10-16] MEDS: CIPROFLOXACIN HCL 250 MG TABLET PO SCH (08:54)
[2018-10-16] MEDS ORDERED: POTASSIUM CHLORIDE IN WATER 100 ML IV SCH (09:00)
[2018-10-16] MEDS ORDERED: LEVOTHYROXINE SODIUM 25 MCG TABLET PO SCH (09:00)
[2018-10-16] MEDS ORDERED: THIAMINE HCL 100 MG TABLET PO SCH (09:00)
[2018-10-16] MEDS ORDERED: SERTRALINE HCL 50 MG TABLET PO SCH (09:00)
[2018-10-16 09:04] LABS: Albumin * 2.2 gm/dl (3.4-5.0); Ca. Corrected For Albumin 8.8 mg/dL (8.4-10.2); Total Protein 5.6 gm/dL (6.2-8.2)
[2018-10-16] MEDS ORDERED: POTASSIUM CHLORIDE 20 MEQ TABLET.SA PO ONE ×2 (09:10→14:27)
--- NOTE | 2018-10-16 12:58 | DS ---
(1) Weakness Diagnosis(s): multifactorial - anemia, hypothyroidism Problem: Acute (2) Anemia Diagnosis(s): stool for occult blood x 1 - negative. s/p post BT due to orthostasis and history of ischemic cardiomyopathy with CAD from occlusion of LAD. Problem: Acute Qualifiers: Anemia type: unspecified type Qualified Code(s): D64.9 - Anemia, unspecified (3) Orthostasis Problem: Acute (4) Elevated LFTs Diagnosis(s): hepatitis panel pending. alcohol related vs hematochomatosis. will reer to hematology and hepatology. Problem: Acute (5) Acute renal failure Diagnosis(s): ARF on CRF (stage III from Stage II) likely prerenal. will do ERNESTO on outpatient. Problem: Acute Qualifiers: (6) UTI (urinary tract infection) Diagnosis(s): started on Cipro. Problem: Acute (7) Major depressive disorder, single episode, severe without psychotic features Problem: Acute (8) Alcohol abuse Problem: Chronic (9) GERD (gastroesophageal reflux disease) Problem: Chronic Qualifiers: (10) HLD (hyperlipidemia) Problem: Chronic Qualifiers: (11) HTN (hypertension) Problem: Chronic Qualifiers: (12) Hypothyroidism Problem: Chronic Qualifiers: (13) History of ischemic cardiomyopathy Diagnosis(s): CAD with occlusion of LAD Problem: Chronic Description of Stay: Scarlet Perez is a 48 year old white female who was seen in my Office on 10/15/2018 for abnormal labs from the ER on 10/09/2018. She complained of weakness, jaundice, and no energy at all. On she was seeing her psychologist for her alcohol dependence and abuse and she complained of weakness. She was then sent to the ED where her labs showed Hb of 7.6 from 10.9 on 07/2018. Her Cr bumped to 1.57, K 3.2, total bili 3.2, AST/ALT 206/77, alk. phos of 450. She followed up in my office with repeat labs and her Hb was 7.2, total bili 2.7, GGT 1318, AST/ALT 128/52, alk phos 363, BNP 1301, lipase 453, TSH 32,002. She says she has cut down to 1/2 pint of Vodka a day. Although she denied any melena, hematochezia, hematemesis, lightheadeness, N/V, D she was orthostatic in the office. Her BP laying down was 104/80, sitting was 100/72 and standing we could only hear the 1st korotkoff sound at 70 to 80 mm Hg. She was then admitted for BT and further work up. Her B12, Folate were normal but her Iron, ferritin, transferrin saturation and ferritin were high . Her TIBC was l ow. She received 2 units of PRBC and she is no longer orthostatic . He post BT H/H was 8.5/25. she is not taking Iron for many months and she started missing menstruation last May,. Her stool for occult blood x 1 was negative. Her abdominal US showed- IMPRESSION: 1. Diffusely increased echogenicity throughout the hepatic parenchyma suggestive of diffuse hepatocellular disease, most commonly hepatic steatosis. Hepatomegaly. 2. Partially visualized pancreas with nonspecific heterogeneous echogenicity. Recommend clinical correlation. 3. Cholecystectomy. Normal caliber bile ducts. She was told that initially our impresion was she was jaundice, elevated LFT's and orthostasis could due to chronic blood loss from possible alcohol liver cirrhosis and we ordered 2 units of PRBC for her orthostasis and ischemic cardiomyopathy. Her Iron work up , shows a possibility that she could have hemachromatosis and treatment usually is phlebotomy ( which is the opposite) or deferroxamine. She will need to be referred to [facility] heapatology and to hematology for further work up. Her levothyroxine was increased to 250 mcg PO Q daily from 225 mcg and will repeat TFT in 4 weeks. We will hold her Lisinopril, lasix and decrease her metoprolol for now as her BP are on the low side. Will order a follow up Echo for her weakness as well on outpatient. Follow up with me next week. Procedures Performed: none Results and Findings: Lab Pending Results 10/15/18 09:52: WBC 7.2, RBC 2.01 L, Hgb 7.2 L*, Hct 22.2 L*, MCV 110.4 H, MCH 35.8 H, MCHC 32.4, RDW 14.6 H, Plt Count 339, MPV 9.4, Immature Gran % (Auto) 4.30 H, Immature Gran # (Auto) 0.31 H, Neutrophils % 56.1, Neutrophils % (Manual) 50, Band Neuts % (Manual) 19 H, Lymphocytes % 29.9, Lymphocytes % (Manual) 27, Monocytes % 7.7, Monocytes % (Manual) 2, Eosinophils % 1.0, Basophils % 1.0, Basophils % (Manual) 2 H, Nucleated RBC % 0.0, Neutrophils # 4.0, Neutrophils # (Manual) 3.6, Lymphocytes # 2.14, Lymphocytes # (Manual) 1.9, Monocytes # 0.6, Monocytes # (Manual) 0.1, Eosinophils # 0.1, Basophils # (Manual) 0.1, Absolute Basophils 0.1, Toxic Vacuolation Trace, Dohle Bodies Trace, Platelet Estimate Normal 10/15/18 09:52: PT 11.4 H, INR (Anticoag Therapy) 1.16 H 10/15/18 09:52: Sodium 135, Plasma Sodium 135, Potassium 3.2 L, Chloride 92 L, Carbon Dioxide 19.6 L, Anion Gap 26.6 H, BUN 11, Creatinine 1.43 H, Est GFR (Non-Af Amer) 41 L, BUN/Creatinine Ratio 7.7 L, Random Glucose 88, Calcium 8.5, Calcium Adj for Albumin 9.2, Ferritin 772 H, Total Bilirubin 2.7 H, GGT 1318 H, AST 128 H, ALT 52, Alkaline Phosphatase 363 H, B-Natriuretic Peptide 1301 H, Total Protein 6.8, Albumin 2.7 L, Amylase 36, Lipase 453 H, Vitamin B12 Greater than 2000 H, Folate 10.4, TSH 32.602 H, Free T4 1.07 10/15/18 09:52: Iron 134 H, TIBC 128 L, Transferrin % Sat 105 H 10/15/18 10:03: Direct Bilirubin 1.9 H 10/15/18 15:05: Blood Type A Positive, Antibody Screen Negative, Crossmatch See Detail 10/16/18 00:15: Hgb 8.0 L, Hct 23.7 L* 10/16/18 08:08: WBC 5.5 D, RBC 2.65 L, Hgb 8.5 L, Hct 25.8 L, MCV 97.4, MCH 32.1 H, MCHC 32.9, RDW 20.7 H, Plt Count 205, MPV 9.0, Immature Gran % (Auto) 2.60 H, Immature Gran # (Auto) 0.14 H, Neutrophils % 65.9, Lymphocytes % 21.0, Monocytes % 8.0, Eosinophils % 1.6, Basophils % 0.9, Nucleated RBC % 0.0, Neutrophils # 3.6, Lymphocytes # 1.15 L, Monocytes # 0.4, Eosinophils # 0.1, Absolute Basophils 0.1 10/16/18 08:08: Sodium 134, Plasma Sodium 135, Potassium 2.8 L, Chloride 95 L, Carbon Dioxide 26.4, Anion Gap 15.4 H, BUN 10, Creatinine 1.56 H, Est GFR (Non- Af Amer) 37 L, BUN/Creatinine Ratio 6.4 L, Random Glucose 193 H D, Calcium 7.7 L, Calcium Adj for Albumin 8.8, Total Bilirubin 2.0 H, AST 99 H, ALT 40, Alkaline Phosphatase 297 H, Total Protein 5.6 L, Albumin 2.2 L 10/16/18 11:55: Stool Occult Blood Negative Discharge Location: Home Disposition: Home self-care Condition: Stable Discharge Activity: Activity as tolerated Discharge Diet: Low salt Referrals: Min Evans MD [Primary Care Provider] - Additional Patient Instructions (free text): Follow up with PCP in 1 week. Please make an appointment with Hepatology/gastroenterology in [facility] and also to hematology. Schedule an Echo on outpatient basis for weakness and history of ischemic cardiomyopathy. Prescriptions (Any new or edited meds): Ciprofloxacin HCl [Cipro] 250 mg PO BID #10 tab Levothyroxine Sodium [Synthroid] 50 mcg PO DAILY@0700 #30 tab Metoprolol Succinate 25 mg PO DAILY #30 tab.er.24h Complete Home Medications List: Complete Home Medication List: rosuvastatin 5 mg tablet 5 mg PO DAILY 03/19/18 Thiamine HCl [Vitamin B-1] 100 mg PO DAILY #100 tab 05/30/18 levothyroxine 200 mcg tablet 200 mcg PO DAILY #90 tab 07/15/18 sertraline 100 mg tablet 50 mg PO DAILY #0 tab 10/12/18 vilazodone 10 mg tablet 10 mg PO DAILY #14 tab 10/12/18 Ciprofloxacin HCl [Cipro] 250 mg PO BID #10 tab 10/16/18 Levothyroxine Sodium [Synthroid] 50 mcg PO DAILY@0700 #30 tab 10/16/18 Metoprolol Succinate 25 mg PO DAILY #30 tab.er.24h 10/16/18 Amb Orders for Discharge: US Echocardiogram Complete * Time Frame: 1 Week, Location: Radiology
[2018-10-16 14:16] LABS: Albumin * 2.2 gm/dl (3.4-5.0); Anion Gap 13.8 mmol/L (6.8-13.8); Bilirubin, Total 1.9 mg/dL (0.0-1.1); Ca. Corrected For Albumin 8.6 mg/dL (8.4-10.2); Calcium * 7.5 mg/dL (7.9-10.9); Carbon Dioxide 26.5 mmol/L (24-32.6); Potassium 3.3 mmol/L (3.4-4.6); Total Protein 5.6 gm/dL (6.2-8.2)
[2018-10-16 14:57] VITALS: BP 124/82
[2018-10-19] MEDS ORDERED: Vilazodone Hcl [Viibryd] 10 MG PO SCH (09:00)
== END 2018-10-16 15:20 | disposition home or self-care (01) ==
LOC: MS 09:43 → LAB 09:43
PROVIDERS: ADMIT Internal Medicine; ATTEND Internal Medicine
DX: I10 Essential (primary) hypertension; F41.9 Anxiety disorder, unspecified; D64.9 Anemia, unspecified; F10.10 Alcohol abuse, uncomplicated; N39.0 Urinary tract infection, site not specified; N17.9 Acute kidney failure, unspecified; Z86.79 Personal history of other diseases of the circulatory system; E78.5 Hyperlipidemia, unspecified; E03.9 Hypothyroidism, unspecified; K21.9 Gastro-esophageal reflux disease without esophagitis; R53.1 Weakness
CPT/HCPCS: 36415; 36430; 76700; 80048; 80050; 80053; 82150; 82248; 82272; 82607; 82728; 82746; 82977; 83519; 83540; 83550; 83690; 83880; 84439; 84466; 85014; 85018; 85025; 85610; 86850; 93005; 96374; G0378; G0379; P9016

== ENCOUNTER 2018-11-19 16:12 | Observation (INO) ==
--- NOTE | 2018-11-19 16:57 | PN ---
Progess Note - Interim Date: 11/19/18 Time: 16:54 Narrative: 11/19/18 16:54 Kim Perez was seen in the Medr floor on 11/19/2018 at 4:55 p.m. I had seen her this morning in the clinic for her 6-week follow-up visit and blood work done showed she was hypokalemic. She does say that she had diarrhea 1-1/2 days ago but has resolved. She also lately has been noticing some muscle cramping. She was admitted for potassium replacement as her potassium was 2.5. My clinic visit notes will serve as my history of present illness for Kim.
[2018-11-19] MEDS ORDERED: POTASSIUM CHLORIDE 10 MEQ TABLET.SA PO SCH (17:00)
[2018-11-19 17:20] LABS: Iron 93 mcg/dL (35-120); Transferrin Sat. (% Sat.) 67 % (15-55)
[2018-11-19] MEDS: POTASSIUM CHLORIDE IN WATER 100 ML IV SCH ×3 (17:35→20:24)
[2018-11-19] MEDS: CALCIUM CARBONATE 500 MG TAB.CHEW PO SCH (17:37)
[2018-11-19 17:46] LABS: Folate 5.6 ng/mL (8.6-58.9)
[2018-11-19] MEDS: MAGNESIUM OXIDE 400 MG TABLET PO SCH (22:36)
[2018-11-20 05:38] LABS: Anion Gap 14.4 mmol/L (6.8-13.8); Calcium * 7.2 mg/dL (7.9-10.9); Carbon Dioxide 22.3 mmol/L (24-32.6); Estimated Creat Clear 58.1; Potassium 2.7 mmol/L (3.4-4.6)
[2018-11-20] MEDS ORDERED: LEVOTHYROXINE SODIUM 100 MCG TABLET PO SCH (07:00)
[2018-11-20] MEDS ORDERED: LEVOTHYROXINE SODIUM 75 MCG TABLET PO SCH (07:00)
[2018-11-20] MEDS ORDERED: POTASSIUM CHLORIDE 10 MEQ in NORMAL SALINE 1,000 ML IV SCH (08:15)
--- NOTE | 2018-11-20 08:16 | DS ---
(1) Hypokalemia Problem: Acute (2) Weakness Problem: Acute (3) Depression Problem: Chronic (4) Generalized anxiety disorder Problem: Chronic (5) HLD (hyperlipidemia) Problem: Chronic Qualifiers: (6) HTN (hypertension) Problem: Chronic Qualifiers: (7) History of ischemic cardiomyopathy Problem: Chronic (8) Hypothyroidism Problem: Chronic Qualifiers: (9) Alcohol abuse Diagnosis(s): sober and dry x 3-4 weeks Problem: Chronic Description of Stay: : Kim Perez is a 48-year-old white female who presented to the office on 11/19/2018 for a 6 week follow up visit. She c/o weakness, legs hurting, easy bruising and has petechiae spots all over arms. Her medications were updated with patient. In the meantime she has stopped drinking alcohol for the last 3 to 4 weeks and has been dry and she was congratulated on it. She has an appointment with gastroenterology next week of [facility]. She also said that Dr. Dorado's office called her to make an appointment with them for her to have an echocardiogram done. In her last visit we stopped her lisinopril and went down on her metoprolol due to orthostatic hypotension. She only takes her Lasix now on an as-needed basis. She is still trying to find an [employer] organization to help her with her alcohol addiction. She has been following with our psychologist who has started her on Viibryd and she says that that has really helped her. We did labs and she was found to have hypokalemia of 2.5 and her EKG showed NSR with anteroseptal myocardial infraction. She was called back and was admitted directly to the floor for observation/telemetry and K replacement (3 runs of 10 meq K riders and Oral Klor Con 40 meq BID). She was also started on oral calcium for hypocalcemia of 8 ( corrected for alb) and Mag Oxide for low normal magnesium of 1.2. She said she had diarrhea 1.5 days ago but resolved. Her levothyroxine was also increased to 275 mcg PO qdaily. This morning her K only went up to 2.7 from 2.5 but she says her diarrhea recurred. Will give her 3 more K riders and her oral K increased to TID with meals. Will start her on IVF with 10 meq KCl. Will recheck her BMP this afternoon and if her K is 3 or over will discharge her on oral K pills. She will remain on telemetry till then. Will sign out to weatherization field technician physician. ADDENDUM: Her is now 3.8. Will discharge her with K rich diet. Procedures Performed: none Results and Findings: Lab Pending Results 11/19/18 11:00: Magnesium 1.2 11/19/18 11:00: Iron 93, TIBC 138 L, Transferrin % Sat 67 H 11/19/18 11:00: Ferritin 629 H, Vitamin B12 1194 H, Folate 5.6 L 11/19/18 22:11: Stool Occult Blood Negative 11/20/18 05:15: Sodium 142, Plasma Sodium 142, Potassium 2.7 L, Chloride 108 H, Carbon Dioxide 22.3 L, Anion Gap 14.4 H, BUN 10, Creatinine 1.00, Est GFR (Non- Af Amer) 62, BUN/Creatinine Ratio 10.0, Random Glucose 72 D, Calcium 7.2 L Discharge Location: Home Disposition: Home self-care Condition: Stable Discharge Activity: Activity as tolerated Discharge Diet: Low salt, Other - Krich diet Referrals: Min Evans MD [Primary Care Provider] - Additional Patient Instructions (free text): Follow up with PCP in 1 week. K rich diet. Prescriptions (Any new or edited meds): Folic Acid 1 mg PO DAILY #30 tab Levothyroxine Sodium [Levoxyl] 200 mcg PO DAILY #90 tab Levothyroxine Sodium [Synthroid] 75 mcg PO DAILY@0700 #60 tab Calcium Carbonate [Tums] 1,000 mg PO DAILY #60 tab.chew Complete Home Medications List: Complete Home Medication List: rosuvastatin 5 mg tablet 5 mg PO HS 03/19/18 Thiamine HCl [Vitamin B-1] 100 mg PO DAILY #100 tab 05/30/18 Metoprolol Succinate 25 mg PO DAILY #30 tab.er.24h 10/16/18 vilazodone 20 mg tablet 20 mg PO DAILY #30 tab 10/27/18 lisinopril 5 mg tablet 5 mg PO DAILY #30 tab 11/19/18 Calcium Carbonate [Tums] 1,000 mg PO DAILY #60 tab.chew 11/20/18 Folic Acid 1 mg PO DAILY #30 tab 11/20/18 Levothyroxine Sodium [Levoxyl] 200 mcg PO DAILY #90 tab 11/20/18 Levothyroxine Sodium [Synthroid] 75 mcg PO DAILY@0700 #60 tab 11/20/18 Amb Orders for Discharge: Comprehensive Metabolic Panel Time Frame: 1 Week, Location: Laboratory
[2018-11-20] MEDS ORDERED: Vilazodone Hcl [Viibryd] 20 MG PO SCH (09:00)
[2018-11-20] MEDS ORDERED: THIAMINE HCL 100 MG TABLET PO SCH (09:00)
[2018-11-20] MEDS ORDERED: ROSUVASTATIN CALCIUM 10 MG TABLET PO SCH (09:00)
[2018-11-20] MEDS ORDERED: METOPROLOL SUCCINATE 25 MG TABLET.SA PO SCH (09:00)
[2018-11-20] MEDS ORDERED: LISINOPRIL 5 MG TABLET PO SCH (09:00)
[2018-11-20] MEDS: POTASSIUM CHLORIDE IN WATER 100 ML IV SCH ×3 (09:11→11:22)
[2018-11-20] MEDS: POTASSIUM CHLORIDE 10 MEQ TABLET.SA PO SCH ×2 (09:16→13:38)
[2018-11-20] MEDS: MAGNESIUM OXIDE 400 MG TABLET PO SCH ×2 (09:17→13:37)
[2018-11-20] MEDS: CALCIUM CARBONATE 500 MG TAB.CHEW PO SCH ×2 (09:17→13:36)
[2018-11-20 16:14] LABS: Anion Gap 14.8 mmol/L (6.8-13.8); BUN/Creatinine Ratio 8.1 (9.0-21.6); Calcium * 7.3 mg/dL (7.9-10.9); Estimated Creat Clear 58.7; Potassium 3.8 mmol/L (3.4-4.6)
[2018-11-20 16:56] VITALS: BP 128/88
== END 2018-11-20 17:28 | disposition home or self-care (01) ==
LOC: MS
PROVIDERS: ADMIT Internal Medicine; ATTEND Internal Medicine
DX: F10.10 Alcohol abuse, uncomplicated; E78.5 Hyperlipidemia, unspecified; F32.9 Major depressive disorder, single episode, unspecified; R41.9 Unspecified symptoms and signs involving cognitive functions and awareness; E03.9 Hypothyroidism, unspecified; E87.6 Hypokalemia; R53.1 Weakness; I10 Essential (primary) hypertension
CPT/HCPCS: 36415; 80048; 82272; 82607; 82728; 82746; 83540; 83550; 83735; 84466; 93005; 96365; 96366; 96367; G0378